=== PATIENT | female | born 1965 | race Caucasian/White ===

== ENCOUNTER 2016-11-11 22:50 | Emergency (ER) ==
[2016-11-11 23:03] VITALS: BP 152/96; TEMP 97.6; BMI 37.8
[2016-11-11] MEDS ORDERED: CARAFATE PO STA (23:04)
[2016-11-11] MEDS ORDERED: GI COCKTAIL PO STA (23:04)
[2016-11-11] MEDS ORDERED: ASPIRIN CHEWABLE PO STA (23:04)
--- NOTE | 2016-11-11 23:13 | ED.PDOC ---
General ED Provider: Dr. EVA CANNON Chief Complaint: Chest Pain Stated Complaint: Patient is brought by police, c/o chest pain, burning type, allthe way upto neck. not short of breath, non exertional pain. ever since she is in snf she is not taking omeprazole Time Seen by Physician: 23:11 Mode of Arrival: Walk-In Information Source: Patient Nursing and Triage Documentation Reviewed and Agree: Yes Cardiovascular Complaint Exam - Chest Pain Complaint/Exam Onset: Gradual Symptoms Are: Still present Timing: Constant Initial Severity: Mild Current Severity: Mild Location: Reports: Upper sternal Pain Radiates: Reports: None Character: Reports: Aching, Tightness, Sharp Aggravating: Reports: None Alleviating: Reports: None Associated Signs and Symptoms: Denies: Diaphoresis, Nausea, Vomiting, Fever, Palpitations, Cough, Hemoptysis, Back pain, Abdominal pain, Dizziness, Short of air, Calf pain, Calf swelling Related History: Reports: Similar episode Related Surgical History: Reports: CABG History of Healthcare-Acquired Pneumonia: Reports: No AMI/ACS Risk Factors: Reports: Myocardial Infarction, Diabetes, Obesity, Hypertension TAD Risk Factors: Reports: None Pulmonary Embolism Risk Factors: Reports: None Prior Care for this Complaint: Yes Subcutaneous Emphysema Present: No Diminshed Breath Sounds: No Reproducible Chest Wall Pain: Yes Bilateral Pulses Present: Yes Unequal Pulses Noted: No If Risk Factors for AMI/ACS Consider: EKG, Cardiac Enzymes, Serial Studies, Oxygen, Aspirin Differential Diagnoses: ACS, Chest Wall Pain, GI Diseasae Review of Systems - Review Of Systems Constitutional: Reports: No symptoms Eyes: Reports: No symptoms Ears, Nose, Mouth, Throat: Reports: No symptoms Respiratory: Reports: No symptoms Cardiac: Reports: Chest pain GI: Reports: Difficulty swallowing : Reports: No symptoms Musculoskeletal: Reports: No symptoms Skin: Reports: No symptoms Neurological: Reports: No symptoms Endocrine: Reports: No symptoms Hematologic/Lymphatic: Reports: No symptoms All Other Systems: Reviewed and Negative Past Medical History - Past Medical History Previously Healthy: Yes Endocrine: Reports: DM 2 Cardiovascular: Reports: CAD, VA, Hypertension Respiratory: Reports: COPD Hematological: Reports: None Gastrointestinal: Reports: None Genitourinary: Reports: None Neuro/Psych: Reports: None Musculoskeletal: Reports: Back Pain Cancer: Reports: Other Last Menstrual Period: PT HAS HAD A HYSTERECTOMY Other Pertinent Past Medical History: CHRONIC NECK AND BACK PAIN, FREQUENT UTI, UTERINE CA - Surgical History General Surgical History: Reports: Hysterectomy, Appendectomy, Cholecystectomy, CABG - Family History Family History: Reports: Unknown - Social History Smoking Status: Former smoker Hx Substance Use: Yes (MARIJUANA) Alcohol Screening: None - Immunizations Tetanus Shot up to Date: No Physical Exam - Physical Exam Appearance: Well-appearing Eyes: ASHOK, EOMI, Conjunctiva clear ENT: Ears normal, Nose normal, Oropharynx normal Respiratory: Airway patent, Breath sounds clear, Breath sounds equal, Respirations nonlabored Cardiovascular: RRR (left chest tender to touch, ), Pulses normal, No rub, No murmur GI/: Soft, Nontender, No masses, Bowel sounds normal, No Organomegaly Musculoskeletal: Normal strength, ROM intact, No edema, No calf tenderness Skin: Warm, Dry, Normal color Neurological: Sensation intact, Motor intact, Reflexes intact, Cranial nerves intact, Alert, Oriented Psychiatric: Affect appropriate, Mood appropriate Re-Evaluation - Re-Evaluation Time of Re-Evaluation: 23:50 Status: Improved Critical Care Note - Critical Care Note Total Time (mins): 0 Course - Course Hematology/Chemistry: 11/11/16 23:15 11/11/16 23:15 Orders, Labs, Meds: Lab Review 11/11/16 23:15 WBC 6.98 RBC 4.84 Hgb 14.4 Hct 40.4 MCV 83.5 MCH 29.8 MCHC 35.6 H RDW Coeff of Heraclio 12.1 Plt Count 140 Immature Gran % (Auto) 0.3 Neut % (Auto) 60.7 Lymph % (Auto) 30.7 [place] % (Auto) 5.6 Eos % (Auto) 2.3 Baso % (Auto) 0.4 Immature Gran # (Auto) 0.0 Neut # 4.2 Lymph # 2.1 [place] # 0.4 Eos # 0.2 Baso # 0.0 D-Dimer 0.88 Sodium 135 L Potassium 4.3 Chloride 104 Carbon Dioxide 19 L Anion Gap 16.3 BUN 12 Creatinine 1.05 Estimated GFR (MDRD) 55.00 BUN/Creatinine Ratio 11.42 Glucose 601 H* Calcium 9.3 Total Bilirubin 0.32 AST 17 ALT 21 Alkaline Phosphatase 87 Total Creatine Kinase 63 Troponin I < 0.0100 Total Protein 7.2 Albumin 3.7 Globulin 3.5 Albumin/Globulin Ratio 1.06 Orders Category Date Time Status EKG-(ED ONLY) Stat CARDIO 11/11/16 23:04 Ordered BLOOD GLUCOSE MONITORING Q1HR CARE 11/11/16 23:57 Ordered CBC W/ AUTO DIFF Stat LAB 11/11/16 23:15 Completed COMPREHENSIVE METABOLIC PANEL Stat LAB 11/11/16 23:15 Completed CREATINE KINASE Stat LAB 11/11/16 23:15 Completed D-DIMER Stat LAB 11/11/16 23:15 Completed TROPONIN I Stat LAB 11/11/16 23:15 Completed Aspirin [Aspirin Chewable] MEDS 11/11/16 23:04 Discontinued 324 mg PO ONCE STA Insulin Regular, Human [Humulin R] MEDS 11/11/16 23:57 Stat 15 unit SUBCUT ONCE STA Mag-Al Plus//Lidocaine [Gi Cocktail] MEDS 11/11/16 23:04 Discontinued 30 ml PO ONCE STA Sucralfate Susp [Carafate] MEDS 11/11/16 23:04 Discontinued 1 gm PO ONCE STA CHEST, 1V AP ONLY Stat RADS 11/11/16 23:04 Taken Medications Discontinued Medications Generic Name Dose Route Start Last Admin Trade Name Freq PRN Reason Stop Dose Admin Al Hydroxide/Mg Hydroxide 30 ml 11/11/16 23:04 11/11/16 23:17 Gi Cocktail PO 11/11/16 23:05 30 ml ONCE STA Administration Aspirin 324 mg 11/11/16 23:04 11/11/16 23:16 Aspirin Chewable PO 11/11/16 23:05 324 mg ONCE STA Administration Sucralfate 1 gm 11/11/16 23:04 11/11/16 23:17 Carafate PO 11/11/16 23:05 1 gm ONCE STA Administration Vital Signs: Temp Pulse Resp BP Pulse Ox 11/11/16 22:52 97.6 F 106 H 24 152/96 H 96 SHIRLEY Risk Score SHIRLEY Risk Score: Risk Score Odds of by 30D 0 0.1 (0.1-0.2) 1 0.3 (0.2-0.3) 2 0.4 (0.3-0.5) 3 0.7 (0.6-0.9) 4 1.2 (1.0-1.5) 5 2.2 (1.9-2.6) 6 3.0 (2.5-3.6) 7 4.8 (3.8-6.1) Departure - Departure Time of Disposition: 00:02 Disposition: HOME SELF-CARE Discharge Problem: GERD (gastroesophageal reflux disease) Qualifiers: Esophagitis presence: without esophagitis Qualifier Code: (K21.9) Gastro- esophageal reflux disease without esophagitis Instructions: Diet for Stomach Ulcers and Gastritis (ED) Condition: Stable Pt referred to PMD for follow-up: Yes Additional Instructions: she is been off of DM medications, will start her on Metformin 1000 po bid Januvia 50 po daily accu checks tid x 10 days f/u in C IN 10 DAYS no spicy food no fried food atypical chest pain, more of burning. Prescriptions: Metformin HCl 1,000 mg PO BID #60 tablet Pantoprazole Sodium [Protonix] 40 mg PO BIDAC #60 tablet. Sitagliptin Phosphate [Januvia] 50 mg PO DAILY #30 tablet Sucralfate Susp [Carafate] 1 gm PO ACHS #1 bottle Allergies/Adverse Reactions: Allergies No Known Allergies Allergy (Uncoded 11/11/16 23:04) Home Medications: Ambulatory Orders Aspirin [Aspirin Chewable] 81 mg PO DAILYWM 11/11/16 Ciprofloxacin HCl [Cipro] 500 mg PO Q12HR 11/11/16 Clonazepam [Klonopin] 0.5 mg PO TID 11/11/16 Clopidogrel Bisulfate [Plavix] 75 mg PO DAILY 11/11/16 Doxepin HCl 25 mg PO BEDTIME 11/11/16 Gabapentin [Neurontin] 600 mg PO TID 11/11/16 Lisinopril 10 mg PO DAILY 11/11/16 Metformin HCl 1,000 mg PO BID #60 tablet 11/11/16 Nitroglycerin [Nitrostat] 0.4 mg SL DIRECTED PRN 11/11/16 Pantoprazole Sodium [Protonix] 40 mg PO BIDAC #60 tablet. 11/11/16 Sitagliptin Phosphate [Januvia] 50 mg PO DAILY #30 tablet 11/11/16 Sucralfate Susp [Carafate] 1 gm PO ACHS #1 bottle 11/11/16 Tramadol HCl 50 mg PO BID 11/11/16 Disposition Discussed With: Patient
[2016-11-11 23:16] LABS: BASOPHILS % (AUTO) 0.4 % (0.0-3.0); EOSINOPHILS # (AUTO) 0.2 K/ul (0.0-0.7); EOSINOPHILS % (AUTO) 2.3 % (0.0-7.0); HEMATOCRIT 40.4 % (37.0-47.0); HEMOGLOBIN 14.4 g/dl (12.0-16.0); IMMATURE GRANULOCYTE % (AUTO) 0.3 % (0.0-5.0); LYMPHOCYTES # (AUTO) 2.1 K/uL (0.60-3.4); LYMPHOCYTES % (AUTO) 30.7 (10.0-50.0); MEAN CORPUSCULAR HEMOGLOBIN 29.8 pg (27.0-31.0); MEAN CORPUSCULAR HGB CONC 35.6 (31.8-35.4); MEAN CORPUSCULAR VOLUME 83.5 fl (81.0-99.0); MONOCYTES # (AUTO) 0.4 K/uL (0.4-2.0); MONOCYTES % (AUTO) 5.6 (0-10); NEUTROPHILS # (AUTO) 4.2 K/ul (2.0-6.9); NEUTROPHILS % (AUTO) 60.7; PLATELET COUNT 140 10^3/uL (140-440); RED BLOOD COUNT 4.84 10^6/ul (4.20-5.40); WHITE BLOOD COUNT 6.98 K/ul (4.6-10.2)
[2016-11-11 23:41] LABS: ALANINE AMINOTRANSFERASE 21 U/L (12-78); ALBUMIN 3.7 g/dL (3.4-5.0); ALBUMIN/GLOBULIN RATIO 1.06; ALKALINE PHOSPHATASE 87 U/L (42-98); ANION GAP 16.3; ASPARTATE AMINO TRANSFERASE 17 U/L (15-37); BILIRUBIN,TOTAL 0.32 mg/dL (0.00-1.20); BLOOD UREA NITROGEN 12 mg/dL (7-18); BUN/CREATININE RATIO 11.42; CALCIUM 9.3 mg/dL (8.2-10.2); CARBON DIOXIDE 19 mmol/L (21-32); CHLORIDE 104 mmol/L (98-107); CREATINE KINASE 63 U/L; CREATININE 1.05 mg/dL (0.60-1.30); POTASSIUM 4.3 mmol/L (3.5-5.10); SODIUM 135 mmol/L (136-145); TOTAL PROTEIN 7.2 g/dL (6.4-8.2)
[2016-11-11 23:53] LABS: GLUCOSE 601 mg/dL (70-110)
[2016-11-11] MEDS ORDERED: HUMULIN R SUBCUT STA (23:57)
--- NOTE | 2016-11-12 05:01 | DI ---
EXAM: Chest, one-view HISTORY: Chest Pain FINDINGS: Cardiac and mediastinal contours are normal. Pulmonary vasculature is normal. Lungs are clear. Prior coronary artery bypass markers. Right convexity thoracic scoliosis. No acute chest w all abnormality. IMPRESSION: No acute cardiopulmonary disease.
== END 2016-11-12 01:18 | disposition home or self-care (01) ==
LOC: ED 22:50
DX: K21.9 Gastro-esophageal reflux disease without esophagitis (principal); I25.2 Old myocardial infarction; E11.9 Type 2 diabetes mellitus without complications; E66.9 Obesity, unspecified; I10 Essential (primary) hypertension; I25.810 Atherosclerosis of coronary artery bypass graft(s) without angina pectoris; J44.9 Chronic obstructive pulmonary disease, unspecified; Z79.899 Other long term (current) drug therapy
CPT/HCPCS: 36415; 80053; 82550; 84484; 85025; 85379; 93005; 93010; 96372; 99283

== ENCOUNTER 2016-11-26 10:58 | Inpatient (IN) | payer OTHER ==
[2016-11-26 11:02] VITALS: BMI 34.0
--- NOTE | 2016-11-26 11:07 | ED.PDOC ---
General ED Provider: Dr. SHANNON COPPOLA JR Chief Complaint: Tooth Problem Stated Complaint: patient states started having pain and swelling to right side of face and upper gums. now swelling has spread to bilateral eyes.[End]97.7 98 20 99% 145/100 9/10 amoxil this AM Time Seen by Physician: 11:10 Mode of Arrival: Walk-In Information Source: Patient Exam Limitations: No limitations Nursing and Triage Documentation Reviewed and Agree: No Review of Systems - Review Of Systems Constitutional: Reports: Malaise, Weakness Eyes: Reports: Inflammation Ears, Nose, Mouth, Throat: Reports: Mouth pain (right upper jaw"I had an abscess yesterday") Respiratory: Reports: No symptoms Cardiac: Reports: No symptoms GI: Reports: No symptoms : Reports: No symptoms Musculoskeletal: Reports: No symptoms Skin: Reports: Other (facial edema) Neurological: Reports: No symptoms Endocrine: Reports: No symptoms Hematologic/Lymphatic: Reports: No symptoms All Other Systems: Other Past Medical History - Past Medical History Previously Healthy: Yes Endocrine: Reports: DM 1, DM 2, Hyperthyroid (old record), Dyslipidemia (old record) Cardiovascular: Reports: CAD, ID, Hypertension, Angina (old record) Respiratory: Reports: COPD Hematological: Reports: None Gastrointestinal: Reports: None, GERD (old record; protonix) Genitourinary: Reports: None, UTI ( FREQUENT UTI) Neuro/Psych: Reports: None, Anxiety (old record), Depression (old record) Musculoskeletal: Reports: Back Pain (CHRONIC NECK AND BACK PAIN) Cancer: Reports: Other (UTERINE CA) Last Menstrual Period: n/a Other Pertinent Past Medical History: - Surgical History General Surgical History: Reports: Hysterectomy, Appendectomy, Cholecystectomy, CABG, Other - Family History Family History: Reports: Unknown - Social History Smoking Status: Former smoker Hx Substance Use: Yes (MARIJUANA) Alcohol Screening: None Physical Exam - Physical Exam Appearance: Ill-appearing, Obese Ill-appearing: Moderate Pain Distress: Moderate Eyes: ASHOK, EOMI, Conjunctiva clear ENT: Ears normal (tm s retracted dull no inflammation), Nose normal, Oropharynx normal Neck: Supple Respiratory: Airway patent, Breath sounds clear, Breath sounds equal, Respirations nonlabored Cardiovascular: RRR, Pulses normal, No rub, No murmur GI/: Soft, Nontender, No masses, Bowel sounds normal, No Organomegaly Musculoskeletal: Normal strength, ROM intact, No edema, No calf tenderness Skin: Warm, Dry, Normal color Neurological: Sensation intact, Motor intact, Reflexes intact, Cranial nerves intact, Alert, Oriented Psychiatric: Affect appropriate, Mood appropriate Critical Care Note - Critical Care Note Total Time (mins): 5 Course - Course Hematology/Chemistry: 11/26/16 11:10 11/26/16 11:10 Vital Signs: Temp Pulse Resp BP Pulse Ox 11/26/16 10:59 97.7 F 98 H 20 145/100 H 99 Departure - Departure Time of Disposition: 12:28 Disposition: ADMITTED INPATIENT Discharge Problem: Diffuse cellulitis of face Condition: Stable Pt referred to PMD for follow-up: Yes Allergies/Adverse Reactions: Allergies No Known Allergies Allergy (Uncoded 11/26/16 11:02) Home Medications: Ambulatory Orders Aspirin [Aspirin Chewable] 81 mg PO DAILYWM 11/11/16 Clonazepam [Klonopin] 0.5 mg PO TID 11/11/16 Clopidogrel Bisulfate [Plavix] 75 mg PO DAILY 11/11/16 Doxepin HCl 25 mg PO BEDTIME 11/11/16 Gabapentin [Neurontin] 600 mg PO TID 11/11/16 Lisinopril 10 mg PO DAILY 11/11/16 Metformin HCl 1,000 mg PO BID #60 tablet 11/11/16 Nitroglycerin [Nitrostat] 0.4 mg SL DIRECTED PRN 11/11/16 Pantoprazole Sodium [Protonix] 40 mg PO BIDAC #60 tablet. 11/11/16 Sucralfate Susp [Carafate] 1 gm PO ACHS #1 bottle 11/11/16 Tramadol HCl 50 mg PO BID 11/11/16 Insulin Glargine,Hum.rec.anlog [Lantus] 40 unit SUBCUT BID 11/26/16
[2016-11-26 11:25] LABS: BASOPHILS % (AUTO) 0.4 % (0.0-3.0); EOSINOPHILS # (AUTO) 0.3 K/ul (0.0-0.7); EOSINOPHILS % (AUTO) 3.3 % (0.0-7.0); HEMATOCRIT 38.6 % (37.0-47.0); HEMOGLOBIN 13.2 g/dl (12.0-16.0); IMMATURE GRANULOCYTE % (AUTO) 0.4 % (0.0-5.0); LYMPHOCYTES # (AUTO) 2.6 K/uL (0.60-3.4); MEAN CORPUSCULAR HGB CONC 34.2 (31.8-35.4); MEAN CORPUSCULAR VOLUME 84.8 fl (81.0-99.0); MONOCYTES # (AUTO) 0.5 K/uL (0.4-2.0); MONOCYTES % (AUTO) 6.6 (0-10); NEUTROPHILS # (AUTO) 4.7 K/ul (2.0-6.9); NEUTROPHILS % (AUTO) 57.3; PLATELET COUNT 163 10^3/uL (140-440); RED BLOOD COUNT 4.55 10^6/ul (4.20-5.40); WHITE BLOOD COUNT 8.15 K/ul (4.6-10.2)
[2016-11-26 11:42] LABS: FLU INTERNAL QC INTERNAL QC VALID; RAPID FLU A NEGATIVE (NEGATIVE); RAPID FLU B NEGATIVE (NEGATIVE)
[2016-11-26 11:48] LABS: ALBUMIN 3.4 g/dL (3.4-5.0); ALBUMIN/GLOBULIN RATIO 1.17; ANION GAP 15.7; BILIRUBIN,TOTAL 0.7 mg/dL (0.00-1.20); CREATININE 0.75 mg/dL (0.60-1.30); POTASSIUM 3.7 mmol/L (3.5-5.10); TOTAL PROTEIN 6.3 g/dL (6.4-8.2)
--- NOTE | 2016-11-26 12:13 | CT ---
EXAM: CT facial bones without contrast HISTORY: Right upper jaw pain with periorbital swelling COMPARISON: None TECHNIQUE: CT facial bones performed without intravenous contrast. Coronal and sagittal reformatte d images obtained. FINDINGS: Mastoid air cells clear. Temporal mandibular joints normally aligned. Mandible intact. Zygomatic maxillary complexes intact. Orbital conde intact. No facial bone fracture. Mild leftwa rd deviation nasal septum. Cervical spinal fusion hardware is incompletely imaged. Degenerative blandon ges in the spine. Minimal mucosal thickening maxillary sinuses. No air-fluid levels paranasal sin uses. Globes and retrobulbar structures appear normal. There is bilateral facial subcutaneous stra nding. Stranding extends to the anterior aspect of the bilateral parotid glands. There is mild sof t tissue swelling surrounding the right periorbital region. No focal drainable collection. Globes a nd retrobulbar structures unremarkable. IMPRESSION: 1. Bilateral facial cellulitis without focal drainable collection. The inflammation extends to bi lateral parotid glands and a component of sialoadenitis not excluded; however, this is favored not t o be the primary source of inflammation as findings are bilateral and fairly symmetric. Right perior bital region also involved. No focal drainable collection. Findings can be correlated clinically for any component of trauma/contusion. 2. Minimal sinusitis with chronic features.
[2016-11-26] MEDS ORDERED: SODIUM CHLORIDE 1,000 ML IV STA (12:29)
[2016-11-26] MEDS ORDERED: VANCOMYCIN 1 GM in SODIUM CHLORIDE 250 ML IV STA (12:29)
[2016-11-26] MEDS ORDERED: ZOSYN 3.375 GM 3.375 GM in SODIUM CHLORIDE 100 ML IV STA (12:30)
[2016-11-26] MEDS ORDERED: TORADOL IVP STA (12:51)
[2016-11-26] MEDS: SODIUM CHLORIDE 1,000 ML IV SCH (13:05)
[2016-11-26] MEDS ORDERED: ZOSYN 3.375 GM 3.375 GM in SODIUM CHLORIDE 100 ML IV SCH (14:00)
[2016-11-26] MEDS ORDERED: NITROSTAT SL PRN (16:40)
[2016-11-26] MEDS ORDERED: NON-FORMULARY MEDICATION (Metformin Hcl [Metformin Hcl] 1,000 MG) PO SCH ×22 (17:30)
[2016-11-26] MEDS: CARAFATE PO SCH ×2 (17:50→20:40)
[2016-11-26] MEDS: GLUCOPHAGE PO SCH (17:50)
[2016-11-26] MEDS: PROTONIX PO SCH (17:50)
[2016-11-26] MEDS: ZOSYN 3.375 GM 3.375 GM in SODIUM CHLORIDE 100 ML IV SCH (19:05)
[2016-11-26] MEDS: SINEQUAN PO SCH (20:41)
[2016-11-26] MEDS: NEURONTIN PO SCH (20:41)
[2016-11-26] MEDS: VANCOMYCIN 750 MG in SODIUM CHLORIDE 250 ML IV SCH (20:42)
[2016-11-26] MEDS: ULTRAM PO SCH (21:00)
[2016-11-26] MEDS: KLONOPIN PO SCH (21:00)
[2016-11-26] MEDS ORDERED: VANCOMYCIN 1.5 GM in SODIUM CHLORIDE 500 ML IV SCH (21:00)
[2016-11-26] MEDS: LANTUS SUBCUT SCH (21:00)
[2016-11-26] MEDS ORDERED: NON-FORMULARY MEDICATION (Gabapentin [Neurontin] 600 MG) PO SCH ×22 (21:00)
[2016-11-27] MEDS: ZOSYN 3.375 GM 3.375 GM in SODIUM CHLORIDE 100 ML IV SCH ×5 (00:15→23:39)
[2016-11-27 05:16] LABS: BASOPHILS % (AUTO) 0.3 % (0.0-3.0); EOSINOPHILS # (AUTO) 0.3 K/ul (0.0-0.7); EOSINOPHILS % (AUTO) 5.3 % (0.0-7.0); HEMOGLOBIN 12.6 g/dl (12.0-16.0); IMMATURE GRANULOCYTE % (AUTO) 0.3 % (0.0-5.0); LYMPHOCYTES # (AUTO) 2.6 K/uL (0.60-3.4); LYMPHOCYTES % (AUTO) 40.5 (10.0-50.0); MEAN CORPUSCULAR HGB CONC 33.2 (31.8-35.4); MEAN CORPUSCULAR VOLUME 87.4 fl (81.0-99.0); MONOCYTES # (AUTO) 0.4 K/uL (0.4-2.0); MONOCYTES % (AUTO) 6.1 (0-10); NEUTROPHILS # (AUTO) 3.1 K/ul (2.0-6.9); NEUTROPHILS % (AUTO) 47.5; PLATELET COUNT 169 10^3/uL (140-440); RED BLOOD COUNT 4.35 10^6/ul (4.20-5.40); WHITE BLOOD COUNT 6.42 K/ul (4.6-10.2)
[2016-11-27] MEDS: PROTONIX PO SCH ×3 (05:16→16:55)
[2016-11-27] MEDS: CARAFATE PO SCH ×5 (05:17→20:47)
[2016-11-27 05:42] LABS: ALBUMIN 2.9 g/dL (3.4-5.0); ALBUMIN/GLOBULIN RATIO 0.97; ANION GAP 12.2; BILIRUBIN,TOTAL 0.55 mg/dL (0.00-1.20); BUN/CREATININE RATIO 15.18; CALCIUM 8.6 mg/dL (8.2-10.2); CREATININE 0.79 mg/dL (0.60-1.30); POTASSIUM 4.2 mmol/L (3.5-5.10); TOTAL PROTEIN 5.9 g/dL (6.4-8.2)
[2016-11-27] MEDS: SODIUM CHLORIDE 1,000 ML IV SCH (08:19)
[2016-11-27] MEDS: ULTRAM PO SCH ×2 (08:33→20:48)
[2016-11-27] MEDS: GLUCOPHAGE PO SCH ×2 (08:33→16:55)
[2016-11-27] MEDS: ASPIRIN CHEWABLE PO SCH (08:33)
[2016-11-27] MEDS: NEURONTIN PO SCH ×3 (08:33→20:48)
[2016-11-27] MEDS: KLONOPIN PO SCH ×3 (08:33→20:48)
[2016-11-27] MEDS: PLAVIX PO SCH (08:34)
[2016-11-27] MEDS: LANTUS SUBCUT SCH ×2 (08:34→20:49)
[2016-11-27] MEDS: ZESTRIL PO SCH (08:34)
[2016-11-27] MEDS: VANCOMYCIN 750 MG in SODIUM CHLORIDE 250 ML IV SCH ×2 (08:38→20:47)
[2016-11-27] MEDS: CEPACOL SORE THROAT LOZENGE MUCOUSMEMB SCH ×8 (09:18→23:16)
[2016-11-27] MEDS: TYLENOL PO PRN ×2 (11:21→18:10)
--- NOTE | 2016-11-27 13:28 | PCM.PROG ---
Attending Provider: ATTENDING PROVIDER: Dr. EVA CANNON DATE OF SERVICE: 11/27/16 SUBJECTIVE: This 51 year old WHITE/ F was hospitalized 11/26/16. The patient is admitted with facial cellulitis, bilateral parotiditis. The patient complains of pain in the face and both jaws. Swelling is still present. She also complains of sore throat. REVIEW OF SYSTEMS: CONSTITUTIONAL: No fever, no chills. ENDOCRINE: No weight loss or weight gain. HEENT: No sinus drainage. Sore throat. Parotid tenderness bilaterally. CVS: Chest nonunion sternal wall. No angina symptoms. No CHF symptoms. No palpitations. No atypical chest pain for CAD. No shortness of breath. RESPIRATORY: No cough, no hemoptysis. GI: No melena. No abdominal pain. No nausea, no vomiting. : No hematuria. No polyuria. SKIN: No rash. No wounds. MUSCULOSKELETAL: No pain. BAG SHAKER: No blackout, no dizziness. No headache. No double vision. PSYCHIATRIC: Not anxious; no depression. No suicidal thoughts. No homicidal thoughts. PHYSICAL EXAMINATION: GENERAL: Lying in bed in no distress. VITAL SIGNS: Temperature 98.1 F, Pulse 86, Respiratory Rate 20, BP 107/67, Pulse Ox 92% HEENT: Mucosa is dry, pallor positive.puffy. The face is puffy - has swelling below the orbits, warm to touch, tender to touch with bilateral parotid swelling. NECK: No JVP, no carotid bruit. No lymphadenopathy. CARDIAC: S1, S2, no S3. Systolic murmur. LUNGS: Decreased entry. Clear to auscultation. ABDOMEN: Soft, non-tender. Bowel sounds active. No rigidity, guarding or CVA tenderness. EXTREMITIES: No clubbing, cyanosis or edema. NEUROLOGIC: Awake, alert and oriented x3. LYMPHATIC: No palpable lymph nodes SKIN: Not dry. Intact. MUSCULOSKELETAL: No joint swelling. LAB REVIEW: 11/27/16 05:10 11/27/16 05:20 11/27/16 05:20: Sodium 145, Potassium 4.2, Chloride 109 H, Carbon Dioxide 28, Anion Gap 12.2, BUN 12, Creatinine 0.79, Estimated GFR (MDRD) 76.00, BUN/ Creatinine Ratio 15.18, Glucose 114 H D, Calcium 8.6, Total Bilirubin 0.55, AST 15, ALT 16, Alkaline Phosphatase 51, Total Protein 5.9 L, Albumin 2.9 L, Globulin 3.0, Albumin/Globulin Ratio 0.97 11/27/16 05:10: WBC 6.42, RBC 4.35, Hgb 12.6, Hct 38.0, MCV 87.4, MCH 29.0, MCHC 33.2, RDW Coeff of Heraclio 12.4, Plt Count 169, Immature Gran % (Auto) 0.3, Neut % (Auto) 47.5, Lymph % (Auto) 40.5, [place] % (Auto) 6.1, Eos % (Auto) 5.3, Baso % (Auto) 0.3, Immature Gran # (Auto) 0.0, Neut # 3.1, Lymph # 2.6, [place] # 0.4, Eos # 0.3, Baso # 0.0 ASSESSMENT: 1. Facial cellulitis, bilateral parotiditis 2. History of CAD 3. 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 History of hypertension 5. History of angina 6. History of substamce use 7. History of depression 8. History of COPD 9. History of uterine cancer 10. History of back pain 11. History of GERD 12. S/P appendectomy 13. S/P hysterectomy 14. S/P cholecystectomy PLAN: 1. Continue Rocephin and Vancomycin 2. Questionable Parotiditis. Advised warm cloth to massage parotid area and lozenges to help 3. Have the patient sit upright 4. Dr. Yu consult 5. Will check mumps serology 6. Risk of cavernous sinus thrombosis Plan and coordination of the patient's care discussed in the presence of [employer] and nurse. CONDITION: Stable SCRIBED BY: MOE NICOLE, Product Development Manager scribed while in presence of service performed by Dr. EVA CANNON on 11/27/16 ([id number])
--- NOTE | 2016-11-27 13:45 | HP ---
DATE OF SERVICE: 11/26/16 REASON FOR HOSPITALIZATION: Facial swelling. HISTORY OF PRESENT ILLNESS: The patient is a 51 year old female with a history of diabetes, hypertension and coronary artery disease. The patient is currently in the long-term for some problem. Yesterday morning she started having the face right upper jaw pain and swelling. Today morning her whole face is swollen, warm to touch and tender to touch so the police department was worried and brought the patient to the emergency room, seen by Dr. Mora. WBC was normal, chemistries sugars were 205, CT of the maxillofacial showed bilateral face defuse cellulitis without drainage collection. Inflammation extends to bilateral parotid glands and the component of the sialoadenitis not excluded. Even the bilateral periorbital region is also involved but there was no abscess. At that time in review of diabetes and the defused facial cellulitis the patient is admitted to the hospital for IV antibiotics. Neurologically patient is stable at this time. REVIEW OF SYSTEMS: CONSTITUTIONAL: No night sweats. No fatigue, malaise, lethargy. No fever or chills. HEENT: Eyes: No visual changes. No eye pain. No eye discharge. ENT: No runny nose. No epistaxis. No sinus pain. No sore throat. No odynophagia. No ear pain. No congestion. Facial swelling, pain, some aches and pain. RESPIRATORY: No cough, no congestion. No hemoptysis. CARDIOVASCULAR: No angina symptoms. No CHF symptoms. No atypical chest pain for CAD. No palpitations. No shortness of breath. GASTROINTESTINAL: No abdominal pain. No nausea or vomiting. No diarrhea or constipation. No hematemesis. No hematochezia. GENITOURINARY: No urgency. No frequency. No dysuria. No hematuria. No obstructive symptoms. No discharge. No pain. No significant abnormal bleeding. MUSCULOSKELETAL: No musculoskeletal pain. No joint swelling. No arthritis. NEUROLOGICAL: No headache. No neck pain. No syncope. No seizures. No dizziness. PSYCHIATRIC: Anxious. Depression. No suicidal thoughts. No homicidal thoughts. SKIN: No rash. No lesions. No wounds. ENDOCRINE: No unexplained weight loss. No weight gain. HEMATOLOGIC/LYMPHATIC: No anemia. No purpura. No petechiae. No prolonged or excessive bleeding. No palpable lymph nodes. PERSONAL/FAMILY/SOCIAL HISTORY: The patient does smoke and drink occasionally. Heavy user of the marijuana and the Methamphetamine in the past. Family history is significant for the Diabetes , Hypertension, Thyroid problems. PAST MEDICAL/SURGICAL PROBLEMS: Diabetes Hypertension Dyslipidemia History of TIA CVA COPD Osteoarthritis DJD Spine Anxiety Depression Bypass surgery, 2013 complicated with infection so part of the sternum was removed. Stent Cholecystectomy Hysterectomy MEDICATIONS: Aspirin Klonopin Plavix Doxepin Neurontin Lisinopril Metformin Nitrostat Protonix Carafate Tramadol Insulin ALLERGIES: No known allergies. PHYSICAL EXAMINATION: VITAL SIGNS: blood pressure 145/100, respiratory rate 20, heart rate 98, temperature 97.7 and saturation 99%. HEENT: Head normocephalic, atraumatic. Eyes: Extraocular muscles are intact. Pupils are equal, round and reactive to light and accommodation. Ears: No lesions. Nose appeared normal. Throat: No exudate or erythema. Swollen face with redness and warm to touch. Oral examination: The patient doesn't have any teeth. No source of infection. Bilateral parotids are swollen and tender. NECK: Supple. No JVD, no carotid bruit. No lymphadenopathy or thyromegaly. LUNGS: Decreased and clear to auscultation. Percussion note normal. Chest symmetrical. HEART: S1, S2, no S3. No murmurs. No cyanosis or clubbing. No ascites. Pulses: Dorsalis pedis and posterior tibial pulses +1 to +2 both sides. ABDOMEN: Soft. Nontender. Bowel sounds active. No CVA tenderness. No mass felt. EXTREMITIES: No edema. Full range of motion of all extremities, equal. NEUROLOGIC: No focal deficit. Cranial nerves II through XII are grossly intact. No headache, no double vision or headache. SKIN: Not dry. Intact. Turgor - normal. LYMPHATIC: No palpable lymph nodes/no lymphedema. MUSCULOSKELETAL: Normal joints with no swelling. Muscle tone is normal. LABS: WBC 8.15, hgb 13.2, hct 38.6, plt count 163, sodium 141, potassium 3.7, chloride 104, bicarb 25, BUN 9, creatinine 0.75 and glucose 205. ASSESSMENT: 1. Bilateral facial cellulitis 2. Bilateral Sialadenitis, parotitis 3. History of diabetes 4. Hypertension 5. Dyslipidemia 6. Coronary artery disease 7. CABG 8. Depression 9. Anxiety PLAN: 1. Admit patient to the regular floor 2. CBC and CMP today and daily 3. Cardiac enzymes and Troponin 4. Continue the home medication 5. Continue the Zosyn, Piperacillin/Tazobactam and Vancomycin 6. IV fluids 7. Accu-checks with the coverage Will follow the patient in daily rounds. TIME SPENT: More than 65 minutes. MTDD
[2016-11-27 15:45] LABS: COCAIN SCREEN,URINE NEGATIVE (NEGATIVE)
[2016-11-27] MEDS: SINEQUAN PO SCH (20:48)
[2016-11-27] MEDS ORDERED: CEPACOL SORE THROAT LOZENGE MUCOUSMEMB PRN (23:17)
[2016-11-28] MEDS: ZOSYN 3.375 GM 3.375 GM in SODIUM CHLORIDE 100 ML IV SCH ×4 (05:05→23:11)
[2016-11-28] MEDS: SODIUM CHLORIDE 1,000 ML IV SCH (05:05)
[2016-11-28] MEDS: CARAFATE PO SCH ×4 (05:50→20:49)
[2016-11-28] MEDS: PROTONIX PO SCH ×2 (05:50→16:10)
[2016-11-28 07:20] LABS: BASOPHILS % (AUTO) 0.2 % (0.0-3.0); EOSINOPHILS # (AUTO) 0.3 K/ul (0.0-0.7); EOSINOPHILS % (AUTO) 5.3 % (0.0-7.0); HEMATOCRIT 35.7 % (37.0-47.0); IMMATURE GRANULOCYTE % (AUTO) 0.5 % (0.0-5.0); LYMPHOCYTES # (AUTO) 2.2 K/uL (0.60-3.4); LYMPHOCYTES % (AUTO) 39.9 (10.0-50.0); MEAN CORPUSCULAR HEMOGLOBIN 29.1 pg (27.0-31.0); MEAN CORPUSCULAR HGB CONC 33.6 (31.8-35.4); MEAN CORPUSCULAR VOLUME 86.4 fl (81.0-99.0); MONOCYTES # (AUTO) 0.3 K/uL (0.4-2.0); MONOCYTES % (AUTO) 6.2 (0-10); NEUTROPHILS # (AUTO) 2.7 K/ul (2.0-6.9); NEUTROPHILS % (AUTO) 47.9; PLATELET COUNT 151 10^3/uL (140-440); RED BLOOD COUNT 4.13 10^6/ul (4.20-5.40); WHITE BLOOD COUNT 5.52 K/ul (4.6-10.2)
[2016-11-28 07:49] LABS: ALBUMIN 2.9 g/dL (3.4-5.0); ALBUMIN/GLOBULIN RATIO 1.04; ANION GAP 12.8; BILIRUBIN,TOTAL 0.42 mg/dL (0.00-1.20); BUN/CREATININE RATIO 16.66; CALCIUM 8.3 mg/dL (8.2-10.2); CREATININE 0.72 mg/dL (0.60-1.30); POTASSIUM 3.8 mmol/L (3.5-5.10); TOTAL PROTEIN 5.7 g/dL (6.4-8.2)
[2016-11-28] MEDS: ULTRAM PO SCH ×2 (09:27→20:56)
[2016-11-28] MEDS: ZESTRIL PO SCH (09:27)
[2016-11-28] MEDS: ASPIRIN CHEWABLE PO SCH (09:27)
[2016-11-28] MEDS: KLONOPIN PO SCH ×3 (09:27→20:56)
[2016-11-28] MEDS: LANTUS SUBCUT SCH ×2 (09:28→20:50)
[2016-11-28] MEDS: GLUCOPHAGE PO SCH ×2 (09:28→18:19)
[2016-11-28] MEDS: NEURONTIN PO SCH ×3 (09:28→20:56)
[2016-11-28] MEDS: VANCOMYCIN 750 MG in SODIUM CHLORIDE 250 ML IV SCH ×2 (10:19→20:49)
[2016-11-28] MEDS: PLAVIX PO SCH (10:19)
--- NOTE | 2016-11-28 10:57 | CONS ---
DATE OF CONSULTATION: 11/28/16 REASON FOR CONSULTATION/HISTORY: This is a 51-year-old lady with history of having pain in her neck up into her throat. She apparently injected some methamphetamine and is concerned about cellulitis. PHYSICAL EXAMINATION: EARS: Clear. NOSE: Dry mucous membranes. No pus or polyps noted. MOUTH: Oropharynx edentulous, no lesions noted. NECK: Reveals tenderness in the carotid arteries bilaterally. IMPRESSION: 1. BILATERAL CAROTIDYNIA, WHICH IS PROBABLY A VIRAL SYNDROME WITH NO SIGNIFICANT PATHOLOGY. RECOMMENDATION: 1. Recommend a mild antiinflammatory agent such as Tylenol or Aspirin. 2. She can be discharged to return on an as needed basis. [place]
[2016-11-28] MEDS: TYLENOL PO PRN (11:14)
--- NOTE | 2016-11-28 13:23 | PN ---
DATE OF SERVICE: 11/28/16 SUBJECTIVE: The patient was admitted with the facial cellulitis and bilateral parotitis. The patient is feeling a little better but swelling and redness is still somewhat present in the face. No swallow difficulty. She has to be seen by Dr. Yu today. REVIEW OF SYSTEMS: CONSTITUTIONAL: No fever, no chills. HEENT: Normal. ENDOCRINE: No weight gain, no weight loss. CVS: No angina symptoms. No CHF symptoms. No palpitations. No atypical chest pain for CAD. No shortness of breath. No PND, no orthopnea. RESPIRATORY: No cough, no hemoptysis. GI: No nausea, no vomiting. No abdominal pain. : No hematuria. No polyuria. MUSCULOSKELETAL:. No joint swelling. PSYCHIATRIC: Not anxious. No depression. No suicidal thoughts. No homicidal thoughts. SKIN: Intact. No rash. PHYSICAL EXAMINATION: V/S:Blood pressure 130/88, respiratory rate 20, heart rate 76 and temperature 97.5. HEENT: Normocephalic, atraumatic. Ears, eyes, nose and throat normal. Facial swelling, redness to touch, warm to touch and bilateral parotids swellings. NECK: Supple. No JVD, no carotid bruit. No lymphadenopathy. LUNGS: Clear to auscultation. No rales or rhonchi. HEART: S1, S2 normal. No S3. No murmur, gallop or regurgitation. ABDOMEN: Soft, nontender. Bowel sounds active. No rigidity. No rebound or guarding. No CVA tenderness. EXTREMITIES: No clubbing, cyanosis or pedal edema. MUSCULOSKELETAL: No joint swelling. NEUROLOGIC: Awake, alert, oriented times three. No focal deficit. LYMPHATIC: No lymph nodes palpable. SKIN: Intact. LABS: WBC 5.52, hgb 12.0, hct 35.7, plt count 151, sodium 144, potassium 3.8, chloride 111, bicarb 24, BUN 12, creatinine 0.72 and glucose 119. ASSESSMENT: 1. Bilateral facial cellulitis 2. Acute parotitis, rule out mumps 3. History of diabetes 4. Hypertension 5. Dyslipidemia 6. 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 PLAN: 1. Continue antibiotics 2. Piperacillin/Tazobactam 3. Vancomycin 4. Accu-checks with the coverage 5. Follow up with Dr. Yu. TIME SPENT: More than 30 minutes MTDD
--- NOTE | 2016-11-28 16:17 | CT ---
EXAM: CT head without contrast HISTORY: Decreased level of consciousness COMPARISON: CT head 04/22/2016, maxillofacial CT 11/26/2016 and MRI brain 07/08/2013 TECHNIQUE: Serial axial images of the brain were obtained from the skull base to the vertex without IV contrast. FINDINGS: The ventricles, cisterns and sulci demonstrate mild generalized volume loss. The ortega-wh ite matter junction is maintained. There is mild scattered low attenuation in the periventricular w kandice matter.No midline shift or mass is identified. There is no abnormal intra or extra-axial fluid collection. The paranasal sinuses and mastoid air cells are clear. The osseous calvarium is intac t. IMPRESSION: No acute intracranial abnormality or hemorrhage. If there is concern for stroke, MRI may be obtained . There is mild generalized volume loss and scattered microangiopathy.
[2016-11-28] MEDS: SINEQUAN PO SCH (20:56)
[2016-11-29] MEDS: ZOSYN 3.375 GM 3.375 GM in SODIUM CHLORIDE 100 ML IV SCH (05:43)
[2016-11-29] MEDS: CARAFATE PO SCH (05:43)
[2016-11-29] MEDS: PROTONIX PO SCH (05:43)
[2016-11-29 06:06] LABS: BASOPHILS % (AUTO) 0.5 % (0.0-3.0); EOSINOPHILS # (AUTO) 0.3 K/ul (0.0-0.7); EOSINOPHILS % (AUTO) 4.4 % (0.0-7.0); HEMATOCRIT 39.8 % (37.0-47.0); HEMOGLOBIN 13.1 g/dl (12.0-16.0); IMMATURE GRANULOCYTE % (AUTO) 0.3 % (0.0-5.0); LYMPHOCYTES # (AUTO) 2.5 K/uL (0.60-3.4); LYMPHOCYTES % (AUTO) 38.6 (10.0-50.0); MEAN CORPUSCULAR HEMOGLOBIN 28.9 pg (27.0-31.0); MEAN CORPUSCULAR HGB CONC 32.9 (31.8-35.4); MEAN CORPUSCULAR VOLUME 87.7 fl (81.0-99.0); MONOCYTES # (AUTO) 0.4 K/uL (0.4-2.0); MONOCYTES % (AUTO) 5.7 (0-10); NEUTROPHILS # (AUTO) 3.2 K/ul (2.0-6.9); NEUTROPHILS % (AUTO) 50.5; PLATELET COUNT 165 10^3/uL (140-440); RED BLOOD COUNT 4.54 10^6/ul (4.20-5.40); WHITE BLOOD COUNT 6.37 K/ul (4.6-10.2)
[2016-11-29 06:44] LABS: ALBUMIN 3.1 g/dL (3.4-5.0); ALBUMIN/GLOBULIN RATIO 0.91; ANION GAP 14.9; BILIRUBIN,TOTAL 0.33 mg/dL (0.00-1.20); BUN/CREATININE RATIO 15.38; CALCIUM 9.2 mg/dL (8.2-10.2); CREATININE 0.78 mg/dL (0.60-1.30); POTASSIUM 3.9 mmol/L (3.5-5.10); TOTAL PROTEIN 6.5 g/dL (6.4-8.2)
[2016-11-29] MEDS: LANTUS SUBCUT SCH (09:17)
[2016-11-29] MEDS: ULTRAM PO SCH (09:17)
[2016-11-29] MEDS: GLUCOPHAGE PO SCH (09:17)
[2016-11-29] MEDS: ASPIRIN CHEWABLE PO SCH (09:17)
[2016-11-29] MEDS: KLONOPIN PO SCH (09:18)
[2016-11-29] MEDS: NEURONTIN PO SCH (09:18)
[2016-11-29] MEDS: PLAVIX PO SCH (09:18)
[2016-11-29] MEDS: ZESTRIL PO SCH (09:18)
[2016-11-29] MEDS: VANCOMYCIN 750 MG in SODIUM CHLORIDE 250 ML IV SCH (09:18)
--- NOTE | 2016-11-29 09:57 | CM.DICTOOL ---
ADMISSION: 11/26/16 12:39 DISCHARGE: 11/29/16 FINAL DIAGNOSIS Diffuse cellulitis of face (Acute) HISTORY OF: HISTORY OF: DM 2 HYPERTHYROIDISM DYSLIPIDEMIA CAD AMI HTN ANGINA COPD GERD ANXIETY DEPRESSION BACK PAIN UTERINE CA S/P HYSTERECTOMY DATE UNKNOWN S/P APPENDECTOMY DATE UNKNOWN S/P CHOLECYSTECTOMY DATE UNKNOWN S/P CABG DATE UNKNOWN LAST VITALS Temp Pulse Resp BP Pulse Ox 98 F 92 H 20 146/92 H 92 L 11/29/16 06:00 11/29/16 06:00 11/29/16 06:00 11/29/16 06:00 11/29/16 06:00 ACTIVE MEDICATIONS Aspirin (Aspirin Chewable) 81 mg PO DAILYWM [facility] Last Admin: 11/28/16 09:27 Dose: 81 mg Clonazepam (Klonopin) 0.5 mg PO TID [facility] Last Admin: 11/28/16 20:56 Dose: 0.5 mg Clopidogrel Bisulfate (Plavix) 75 mg PO DAILY [facility] Last Admin: 11/28/16 10:19 Dose: 75 mg Doxepin HCl (Sinequan) 25 mg PO BEDTIME [facility] Last Admin: 11/28/16 20:56 Dose: 25 mg Gabapentin (Neurontin) 600 mg PO TID [facility] Last Admin: 11/28/16 20:56 Dose: 600 mg Insulin Glargine (Lantus) 40 unit SUBCUT BID [facility] Last Admin: 11/28/16 20:50 Dose: 40 unit Lisinopril (Zestril) 10 mg PO DAILY [facility] Last Admin: 11/28/16 09:27 Dose: 10 mg Metformin HCl (Glucophage) 1,000 mg PO BIDWM [facility] Last Admin: 11/28/16 18:19 Dose: 1,000 mg Nitroglycerin (Nitrostat) 0.4 mg SL Q5MIN X 3 DOSES PRN PRN Reason: Chest Pain Pantoprazole Sodium (Protonix) 40 mg PO BIDAC [facility] Last Admin: 11/29/16 05:43 Dose: 40 mg Sucralfate (Carafate) 1 gm PO ACHS [facility] Last Admin: 11/29/16 05:43 Dose: 1 gm Tramadol HCl (Ultram) 50 mg PO BID [facility] Last Admin: 11/28/16 20:56 Dose: 50 mg ALLERGIES No Known Allergies Allergy (Uncoded 11/26/16 11:02) NEW PRESCRIPTIONS: NEW MEDICATIONS: 1. CLINDAMYCIN 300MG PO TID X 5 DAYS. 2. BACTRIM DS PO TID X 5 DAYS. 3. TYLENOL 650MG PO EVERY 4 HOURS NEEDED FOR PAIN. SMOKING: NON SMOKER DISEASE SPECIFIC EDUCATION: CELLULITIS DRUG ABUSE - DO NOT USE NON-PRESCRIPTION DRUGS. ESPECIALLY DO NOT SNORT DRUGS. MEDICATIONS PROBIOTICS LAB REVIEW: 11/29/16 05:30 11/29/16 05:30 11/29/16 05:30: WBC 6.37, RBC 4.54, Hgb 13.1, Hct 39.8, MCV 87.7, MCH 28.9, MCHC 32.9, RDW Coeff of Heraclio 12.4, Plt Count 165, Immature Gran % (Auto) 0.3, Neut % (Auto) 50.5, Lymph % (Auto) 38.6, Coffee % (Auto) 5.7, Eos % (Auto) 4.4, Baso % (Auto) 0.5, Immature Gran # (Auto) 0.0, Neut # 3.2, Lymph # 2.5, Coffee # 0.4, Eos # 0.3, Baso # 0.0, Sodium 144, Potassium 3.9, Chloride 110 H, Carbon Dioxide 23, Anion Gap 14.9, BUN 12, Creatinine 0.78, Estimated GFR (MDRD) 78.00 , BUN/Creatinine Ratio 15.38, Glucose 109, Calcium 9.2, Total Bilirubin 0.33, AST 17, ALT 17, Alkaline Phosphatase 51, Total Protein 6.5, Albumin 3.1 L, Globulin 3.4, Albumin/Globulin Ratio 0.91 11/27/16 05:05: Mumps IgG Ab Index 119.0, Mumps Virus IgM Ab <0.80 PLAN: DISCHARGE TO POLICE TODAY. NEW MEDICATIONS: 1. CLINDAMYCIN 300MG PO TID X 5 DAYS. 2. BACTRIM DS PO TID X 5 DAYS. 3. TYLENOL 650MG PO EVERY 4 HOURS NEEDED FOR PAIN. PROBIOTIC OR YOGURT TID FOR 30 DAYS. FOLLOW UP WITH PRIMARY MD IN 7 TO 10 DAYS. ALERT AND ORIENTED X 4. SPEECH CLEAR. FACIAL EDEMA HAS IMPROVED WELL THE REDNESS TO FACE. RESPIRATIONS EVEN AND UNLABORED. NO COUGH NOTED. HAS BEEN UP AMBULATING WITH STEADY GAIT. VITAL SIGNS HAVE BEEN STABLE. HAS BEEN AFEBRILE. IS INDEPENDENT WITH ACTIVITIES OF DAILY LIVING. DR. KASSANDRA GREGORY
[2016-11-29 10:03] VITALS: BP 131/87; TEMP 97.5
--- NOTE | 2016-12-03 11:47 | DS ---
DATE OF SERVICE: 11/29/16 FINAL DIAGNOSIS: 1. DIFFUSE FACIAL CELLULITIS WITH BILATERAL PAROTITIS/PARODYNIA 2. DIABETES MELLITUS 3. HYPOTHYROIDISM 4. DYSLIPIDEMIA 5. CAD 6. HISTORY OF NM STATUS POST BYPASS SURGERY 7. ANXIETY/DEPRESSION 8. BACK PAIN 9. UTERINE CANCER 10. STATUS POST HYSTERECTOMY 11. APPENDECTOMY 12. CHOLECYSTECTOMY V/S: At time of discharge, BP 146/82, respiratory rate 92, heart rate 20, temperature 98.0, pulse 92. DISCHARGE INSTRUCTIONS: Followup appointment with primary M.D. in 7 to 10 days. Discharged to the police. MEDICATIONS AT DISCHARGE: 1. Aspirin 2. Klonopin 3. Plavix 4. Doxepin 5. Neurontin 6. Lantus 7. Zestril 8. Glucophage 9. Nitrostat 10. Protonix 11. Carafate 12. Ultram NEW PRESCRIPTIONS: 1. Bactrim DS twice a day 2. Clindamycin 300 mg t.i.d. for 5 more days 3. Tylenol p.r.n. 4. Probiotics [id number] DIET INSTRUCTIONS: 1800 calorie diet ACTIVITY: As the patient tolerates. SMOKING: None DISEASE SPECIFIC EDUCATION: Upper facial cellulitis; risk of cavernous sinus thrombosis discussed, the patient verbalized understanding. Drug use and risk of coronary artery disease discussed in detail, the patient verbalized understanding. She promised that she is not going to do any more drugs. HOSPITAL COURSE: This is a 51-year-old female patient, who is a resident of the nursing home here in [facility]. She woke up with severe facial cellulitis, red, tender and painful face. She came to the emergency room. She was evaluated by the ER physician. CT of the maxillofacial area showed diffuse facial cellulitis with parotid swelling. At that time, in view of risk of cavernous sinus thrombosis from infection, the patient was admitted to the hospital. She was started on IV antibiotics Vancomycin and Zosyn. Tylenol was given for pain. IV fluids were given. Dr. Yu consultation obtained for parotid swelling. He thought it was parodynia, nothing to be done at the present time. Blood cultures, strep screen negative. Pain and swelling were getting better. Drug screen was done and showed methamphetamine and amphetamine positive. Mumps virus showed negative. Influenza was negative. As the patient was doing fine, did not have any problems, CT of the head was done which did not show any masses. No headache present. Swelling and redness of the face almost resolved. At this time , the patient is discharged home. TIME SPENT: More than 45 minutes today. [place]
== END 2016-11-29 10:40 | DRG 603 ==
LOC: ED 10:58 → MEDSURG A 12:39
PROVIDERS: ADMIT Emergency Medicine; ATTEND Emergency Medicine
DX: L03.211 Cellulitis of face (principal); K11.21 Acute sialoadenitis; E11.9 Type 2 diabetes mellitus without complications; I10 Essential (primary) hypertension; J44.9 Chronic obstructive pulmonary disease, unspecified; I25.10 Atherosclerotic heart disease of native coronary artery without angina pectoris; G90.01 Carotid sinus syncope; E78.5 Hyperlipidemia, unspecified; E03.9 Hypothyroidism, unspecified; F41.8 Other specified anxiety disorders; F15.99 Other stimulant use, unspecified with unspecified stimulant-induced disorder; M54.9 Dorsalgia, unspecified; Z86.73 Personal history of transient ischemic attack (TIA), and cerebral infarction without residual deficits; I25.2 Old myocardial infarction; Z79.01 Long term (current) use of anticoagulants; Z79.899 Other long term (current) drug therapy; Z95.1 Presence of aortocoronary bypass graft
CPT/HCPCS: 36415; 80053; 80202; 80306; 82962; 85025; 85379; 86735; 87040; 87081; 87651; 87804; 87880; 96365; 99223; 99233; 99239; 99284

== ENCOUNTER 2017-03-04 09:53 | Inpatient (IN) | payer OTHER ==
[2017-03-04] MEDS ORDERED: DUONEB NEB STA (10:23)
[2017-03-04 10:33] LABS: ABG BASE EXCESS -1 (-2.0-2.0); ABG HCO3 23.2 (22.0-26.0); ABG PCO2 36.5 mmHg (35-45); ABG PH 7.412 (7.35-7.45); ABG TCO2 24 (22.0-28.0)
[2017-03-04] MEDS ORDERED: ROCEPHIN 1 GM in SODIUM CHLORIDE 50 ML IV STA (10:42)
[2017-03-04 10:50] LABS: BASOPHILS % (AUTO) 0.4 % (0.0-3.0); EOSINOPHILS % (AUTO) 0.3 % (0.0-7.0); HEMATOCRIT 37.5 % (37.0-47.0); HEMOGLOBIN 12.1 g/dl (12.0-16.0); IMMATURE GRANULOCYTE % (AUTO) 0.5 % (0.0-5.0); LYMPHOCYTES # (AUTO) 1.2 K/uL (0.60-3.4); LYMPHOCYTES % (AUTO) 16.3 (10.0-50.0); MEAN CORPUSCULAR HEMOGLOBIN 28.6 pg (27.0-31.0); MEAN CORPUSCULAR HGB CONC 32.3 (31.8-35.4); MEAN CORPUSCULAR VOLUME 88.7 fl (81.0-99.0); MONOCYTES # (AUTO) 0.3 K/uL (0.4-2.0); MONOCYTES % (AUTO) 4.5 (0-10); NEUTROPHILS # (AUTO) 5.9 K/ul (2.0-6.9); PLATELET COUNT 197 10^3/uL (140-440); RED BLOOD COUNT 4.23 10^6/ul (4.20-5.40)
--- NOTE | 2017-03-04 11:03 | DI ---
Exam: Chest one-view. HISTORY: Chest pain. Comparison: 11/11/2016. Findings: Portable image of the chest demonstrates moderately expanded lungs with diffuse bilateral pulmonary vascular congestion. There is blunting of the right costophrenic angle. Mild alveolar o pacities noted at the lung bases. Cardiac silhouette appears diffusely enlarged. Postoperative liliana nges are again noted in the chest. The skeletal structures are unchanged with mild dextroscoliosis. Impressions: Findings of congestive heart failure with cardiomegaly, pulmonary vascular congestion and a probable small right pleural effusion. Follow-up PA and lateral radiographs of the chest afte r appropriate therapy are recommended. Mild bibasilar atelectasis or pneumonia. Redemonstration of changes of prior cardiac bypass.
[2017-03-04 11:18] LABS: ALBUMIN 3.7 g/dL (3.4-5.0); ALBUMIN/GLOBULIN RATIO 1.16; ANION GAP 17.9; BILIRUBIN,TOTAL 1.7 mg/dL (0.00-1.20); BUN/CREATININE RATIO 10.12; CREATININE 0.79 mg/dL (0.60-1.30); POTASSIUM 2.9 mmol/L (3.5-5.10); TOTAL PROTEIN 6.9 g/dL (6.4-8.2); TROPONIN I 0.039 ng/ml (0.0000-0.4000)
[2017-03-04] MEDS ORDERED: ROCEPHIN ONE (11:21)
[2017-03-04] MEDS ORDERED: K-DUR PO STA (11:32)
[2017-03-04] MEDS ORDERED: LASIX IVP STA (11:42)
--- NOTE | 2017-03-04 11:51 | ED.PDOC ---
General ED Provider: Dr. SHANNON COPPOLA JR Chief Complaint: Respiratory Complaint Stated Complaint: COUGH SHORT OF AIR FOR TWO WEEKS Time Seen by Physician: 20:00 Mode of Arrival: Walk-In Information Source: Patient Exam Limitations: No limitations [facility] Documentation Reviewed and Agree: No Review of Systems - Review Of Systems Constitutional: Reports: Malaise, Weakness Eyes: Reports: No symptoms Ears, Nose, Mouth, Throat: Reports: No symptoms Respiratory: Reports: Cough, Short of air Cardiac: Reports: Edema GI: Reports: No symptoms : Reports: No symptoms Musculoskeletal: Reports: No symptoms Skin: Reports: No symptoms Neurological: Reports: No symptoms Endocrine: Reports: No symptoms Hematologic/Lymphatic: Reports: No symptoms All Other Systems: Other Past Medical History - Past Medical History Previously Healthy: Yes Endocrine: Reports: DM 1, DM 2, Hyperthyroid (old record), Dyslipidemia (old record) Cardiovascular: Reports: CAD, DE, Hypertension, Angina (old record) Respiratory: Reports: COPD Hematological: Reports: None Gastrointestinal: Reports: None, GERD (old record; protonix) Genitourinary: Reports: None, UTI ( FREQUENT UTI) Neuro/Psych: Reports: None, Anxiety (old record), Depression (old record) Musculoskeletal: Reports: Back Pain (CHRONIC NECK AND BACK PAIN) Cancer: Reports: Other (UTERINE CA) Last Menstrual Period: NA Other Pertinent Past Medical History: - Surgical History General Surgical History: Reports: Hysterectomy, Appendectomy, Cholecystectomy, CABG, Other - Family History Family History: Reports: Unknown - Social History Smoking Status: Former smoker Hx Substance Use: Yes Alcohol Screening: None Physical Exam - Physical Exam Appearance: Ill-appearing, Obese Ill-appearing: Moderate Pain Distress: Mild Eyes: ASHOK ENT: Ears normal, Nose normal, Oropharynx normal Neck: Supple Respiratory: Airway patent, Crackles, Rhonchi, Wheezes Cardiovascular: RRR, Pulses normal GI/: Soft, Nontender Musculoskeletal: Normal strength, ROM intact, No calf tenderness, Edema Skin: Warm, Dry, Pale Neurological: Alert, Oriented Critical Care Note - Critical Care Note Total Time (mins): 35 Course - Course Hematology/Chemistry: 03/04/17 10:20 03/04/17 10:40 Orders, Labs, Meds: Lab Review 03/04/17 03/04/17 10:20 10:40 WBC 7.50 RBC 4.23 Hgb 12.1 Hct 37.5 MCV 88.7 MCH 28.6 MCHC 32.3 RDW Coeff of Heraclio 14.5 Plt Count 197 Immature Gran % (Auto) 0.5 Neut % (Auto) 78.0 Lymph % (Auto) 16.3 White % (Auto) 4.5 Eos % (Auto) 0.3 Baso % (Auto) 0.4 Immature Gran # (Auto) 0.0 Neut # 5.9 Lymph # 1.2 White # 0.3 L Eos # 0.0 Baso # 0.0 D-Dimer (Manual) 1162.24 Puncture Site R rad O2 Saturation 86.0 L ABG pH 7.412 ABG pCO2 36.5 ABG pO2 50.0 L* ABG HCO3 23.2 ABG Total CO2 24 ABG Base Excess -1 Terrell Test + FiO2 % 21.0 Sodium 143 Potassium 2.9 L Chloride 106 Carbon Dioxide 22 Anion Gap 17.9 BUN 8 Creatinine 0.79 Estimated GFR (MDRD) 76.00 BUN/Creatinine Ratio 10.12 Glucose 270 H Lactic Acid 21.2 H Calcium 9.0 Total Bilirubin 1.70 H AST 40 H ALT 47 Alkaline Phosphatase 51 Total Creatine Kinase 77 Troponin I 0.0390 B-Natriuretic Peptide 1725 H Total Protein 6.9 Albumin 3.7 Globulin 3.2 Albumin/Globulin Ratio 1.16 Procalcitonin < 0.05 Orders Category Date Time Status ABG DRAW REQUEST Stat CARDIO 03/04/17 10:21 Completed EKG-(ED ONLY) Stat CARDIO 03/04/17 10:20 Completed NEBULIZER TREATMENT Stat CARDIO 03/04/17 10:23 Completed ED APPLY O2 .ONCE EMERGENCY 03/04/17 10:20 Active ED IV/MEDIPORT/POWERPORT .ONCE EMERGENCY 03/04/17 10:20 Active O2 [ED APPLY O2] .ONCE EMERGENCY 03/04/17 10:44 Active ABG Stat LAB 03/04/17 10:20 Completed B-TYPE NATRIURETIC PEPTIDE Stat LAB 03/04/17 10:40 Completed BLOOD CULTURE Stat LAB 03/04/17 10:40 Received CBC W/ AUTO DIFF Stat LAB 03/04/17 10:20 Completed COMPREHENSIVE METABOLIC PANEL Stat LAB 03/04/17 10:40 Completed CREATINE KINASE Stat LAB 03/04/17 10:40 Completed D-DIMER Stat LAB 03/04/17 10:40 Completed LACTIC ACID Stat LAB 03/04/17 10:40 Completed PROCALCITONIN Stat LAB 03/04/17 10:40 Completed TROPONIN I Stat LAB 03/04/17 10:40 Completed 0.9 % Sodium Chloride [Saline Flush] MEDS 03/04/17 10:20 Active 1 syr IVF PRN PRN Ceftriaxone Sodium [Rocephin] MEDS 03/04/17 11:21 Discontinued 1 gm .ROUTE .STK-MED ONE Ceftriaxone Sodium [Rocephin] 1 gm MEDS 03/04/17 10:42 Discontinued 0.9 % Sodium Chloride [Sodium Chloride] 50 ml IV ONCE Furosemide [Lasix] MEDS 03/04/17 11:42 Discontinued 20 mg IVP ONCE STA Ipratropium/Albuterol Neb [Duoneb] MEDS 03/04/17 10:23 Discontinued 1 vial NEB ONCE STA Potassium Chloride [K-Dur] MEDS 03/04/17 11:32 Discontinued 20 meq PO ONCE STA Potassium Chloride/D5-0.45NACL [D5%-1/2Ns-KCl 30 Meq/l MEDS 03/04/17 12:00 Discontinued IV Jennifer] 1,000 ml IV 42 mls/hr CHEST, 1V AP ONLY Stat RADS 03/04/17 10:20 Completed U/S VENOUS SCAN JAMES LEGS Stat RADS 03/04/17 10:20 Ordered Medications Generic Name Dose Route Start Last Admin Trade Name Freq PRN Reason Stop Dose Admin Potassium Chloride 20 meq/ 1,010 mls @ 50 mls/hr 03/04/17 12:00 Potassium Chloride/Dextrose/ IV Sod Cl .[id number] ABIGAIL Sodium Chloride 1 syr 03/04/17 10:20 Saline Flush IVF PRN PRN To flush IV Discontinued Medications Generic Name Dose Route Start Last Admin Trade Name Freq PRN Reason Stop Dose Admin Albuterol/Ipratropium 1 vial 03/04/17 10:23 03/04/17 10:30 Duoneb NEB 03/04/17 10:24 1 vial ONCE STA Administration Furosemide 20 mg 03/04/17 11:42 Lasix IVP 03/04/17 11:43 ONCE STA Ceftriaxone Sodium 1 gm/ 50 mls @ 75 mls/hr 03/04/17 10:42 03/04/17 11:34 Sodium Chloride IV 03/04/17 11:21 75 mls/hr ONCE STA Administration Potassium Chloride/Dextrose/Sod Cl 1,000 mls @ 42 mls/hr 03/04/17 12:00 D5%-1/2ns-Kcl 30 Meq/L Iv Jennifer IV .[id number] ABIGAIL Potassium Chloride 20 meq 03/04/17 11:32 K-Dur PO 03/04/17 11:33 ONCE STA Vital Signs: Temp Pulse Resp BP Pulse Ox 03/04/17 09:56 97.6 F 92 H 32 H 154/111 H 88 L Departure - Departure Time of Disposition: 11:52 Disposition: ADMITTED INPATIENT Discharge Problem: Hyponatremia CHF (congestive heart failure) Qualifiers: Congestive heart failure type: systolic Congestive heart failure chronicity: acute on chronic Qualifier Code: (I50.23) Acute on chronic systolic (congestive ) heart failure Condition: Fair Pt referred to PMD for follow-up: No (HOSPITALIST) Allergies/Adverse Reactions: Allergies No Known Allergies Allergy (Uncoded 03/04/17 09:55) Home Medications: Ambulatory Orders Aspirin [Aspirin Chewable] 81 mg PO DAILYWM 11/11/16 Clonazepam [Klonopin] 0.5 mg PO TID 11/11/16 Clopidogrel Bisulfate [Plavix] 75 mg PO DAILY 11/11/16 Doxepin HCl 25 mg PO BEDTIME 11/11/16 Gabapentin [Neurontin] 600 mg PO TID 11/11/16 Lisinopril 10 mg PO DAILY 11/11/16 Metformin HCl 1,000 mg PO BID #60 tablet 11/11/16 Pantoprazole Sodium [Protonix] 40 mg PO BIDAC #60 tablet. 11/11/16 Sucralfate Susp [Carafate] 1 gm PO ACHS #1 bottle 11/11/16 Tramadol HCl 50 mg PO BID 11/11/16 Insulin Glargine,Hum.rec.anlog [Lantus] 80 unit SUBCUT DAILY 11/26/16 Lactobacillus Acidophilus [Acidophilus] 1 each PO TID 03/04/17
[2017-03-04] MEDS ORDERED: D5%-1/2NS-KCL 30 MEQ/L IV SOL 1,000 ML IV SCH (12:00)
[2017-03-04] MEDS ORDERED: ROBITUSSIN DM SYRUP PO PRN (12:09)
[2017-03-04] MEDS ORDERED: TYLENOL PO PRN (12:10)
[2017-03-04] MEDS ORDERED: KLONOPIN PO PRN (12:14)
[2017-03-04] MEDS: [UNRECOGNIZED DRUG - MIXTURE] IV SCH (13:52)
[2017-03-04] MEDS: NEURONTIN PO SCH ×2 (14:16→21:06)
[2017-03-04] MEDS: LACTOBACILLUS ACIDOPHILUS PO SCH ×2 (14:18→21:05)
[2017-03-04] MEDS ORDERED: NON-FORMULARY MEDICATION (Gabapentin [Neurontin] 600 MG) PO SCH ×22 (15:00)
[2017-03-04] MEDS ORDERED: CARAFATE PO SCH (17:00)
[2017-03-04] MEDS: PROTONIX PO SCH (17:00)
[2017-03-04] MEDS: GLUCOPHAGE PO SCH (17:00)
[2017-03-04] MEDS ORDERED: DECADRON 4 MG/ML SDV IVP STA (17:10)
[2017-03-04] MEDS: DUONEB NEB SCH ×2 (17:20→23:01)
[2017-03-04] MEDS: HUMULIN R SUBCUT PRN ×2 (17:47→21:06)
[2017-03-04 19:15] LABS: TROPONIN I 0.046 ng/ml (0.0000-0.4000)
[2017-03-04] MEDS ORDERED: NON-FORMULARY MEDICATION (Metformin Hcl [Metformin Hcl] 1,000 MG) PO SCH ×22 (21:00)
[2017-03-04] MEDS: ALDACTONE PO SCH (21:06)
[2017-03-04] MEDS: ULTRAM PO SCH (21:06)
[2017-03-04] MEDS: SINEQUAN PO SCH (21:06)
[2017-03-05 02:16] LABS: BASOPHILS % (AUTO) 0.4 % (0.0-3.0); EOSINOPHILS % (AUTO) 0.1 % (0.0-7.0); HEMATOCRIT 35.8 % (37.0-47.0); HEMOGLOBIN 11.4 g/dl (12.0-16.0); LYMPHOCYTES # (AUTO) 1.4 K/uL (0.60-3.4); LYMPHOCYTES % (AUTO) 20.3 (10.0-50.0); MEAN CORPUSCULAR HEMOGLOBIN 28.4 pg (27.0-31.0); MEAN CORPUSCULAR HGB CONC 31.8 (31.8-35.4); MEAN CORPUSCULAR VOLUME 89.1 fl (81.0-99.0); MONOCYTES # (AUTO) 0.3 K/uL (0.4-2.0); NEUTROPHILS # (AUTO) 5.2 K/ul (2.0-6.9); NEUTROPHILS % (AUTO) 74.2; PLATELET COUNT 192 10^3/uL (140-440); RED BLOOD COUNT 4.02 10^6/ul (4.20-5.40); WHITE BLOOD COUNT 7.01 K/ul (4.6-10.2)
[2017-03-05 02:42] LABS: TROPONIN I 0.029 ng/ml (0.0000-0.4000)
[2017-03-05 02:55] LABS: ALBUMIN 3.6 g/dL (3.4-5.0); ALBUMIN/GLOBULIN RATIO 1.16; ANION GAP 15.5; BILIRUBIN,TOTAL 1.02 mg/dL (0.00-1.20); BUN/CREATININE RATIO 12.79; CREATININE 0.86 mg/dL (0.60-1.30); POTASSIUM 3.5 mmol/L (3.5-5.10); TOTAL PROTEIN 6.7 g/dL (6.4-8.2)
[2017-03-05] MEDS: DUONEB NEB SCH ×4 (05:03→23:05)
[2017-03-05] MEDS: HUMULIN R SUBCUT PRN ×4 (05:41→20:54)
[2017-03-05] MEDS: PROTONIX PO SCH ×2 (05:41→16:19)
[2017-03-05] MEDS: LASIX IVP SCH (05:41)
[2017-03-05] MEDS ORDERED: COREG PO SCH ×2 (08:00)
[2017-03-05] MEDS: ASPIRIN CHEWABLE PO SCH (08:06)
[2017-03-05] MEDS: ZESTRIL PO SCH (08:07)
[2017-03-05] MEDS: ULTRAM PO SCH ×2 (08:07→20:55)
[2017-03-05] MEDS: PLAVIX PO SCH (08:07)
[2017-03-05] MEDS: NEURONTIN PO SCH ×3 (08:07→20:55)
[2017-03-05] MEDS: GLUCOPHAGE PO SCH ×2 (08:07→16:33)
[2017-03-05] MEDS: ALDACTONE PO SCH (08:07)
[2017-03-05] MEDS: LANTUS SUBCUT SCH (08:10)
[2017-03-05] MEDS: LACTOBACILLUS ACIDOPHILUS PO SCH ×3 (08:16→20:55)
[2017-03-05] MEDS: COREG PO SCH ×2 (08:47→16:33)
[2017-03-05] MEDS ORDERED: DECADRON 4 MG/ML SDV IVP ONE (09:00)
--- NOTE | 2017-03-05 09:19 | HP ---
CHIEF COMPLAINT: Shortness of breath. SOURCE OF HISTORY: Patient. HISTORY OF PRESENT ILLNESS: The patient claimed to have been experiencing cough for about two weeks prior to this admission. She also had increasing shortness of breath and worse on the day of presentation to the emergency room. The worsening dated back two days ago. After workup the patient was felt to need admission and was then admitted. The work up in the emergency room prior to admission consisted of a CBC, unremarkable, arterial blood gases showing moderate hypoxemia, normal pH 7.412. D-Dimer elevated 1,162. BNP elevated 1725. Blood sugar 270. Lactic acid 21.2, upper normal 19.8. Procalcitonin normal at 0.05 and less. PAST PERSONAL HISTORY: Cardiac bypass 2013, four vessels. Frequent kidney infections, hysterectomy, [facility] counselling, cholecystectomy. Diabetes mellitus, hypertension, malignancy, myocardial infarction and uterine carcinoma. FAMILY HISTORY: Some members of the family had hypertension, diabetes mellitus. SOCIAL HISTORY: The patient is a and now residing at [facility]. She stopped smoking some 8 months ago and denies any alcohol use or abuse. MEDICATIONS: Listed prior to this admission, Lisinopril 10 mg daily, Sucralfate 1 gram before meals and hs, Tramadol 50 mg twice a day, Aspirin 81 mg daily, Neurontin 600 mg three times a day, Clonazepam 0.5 mg three times a day, Plavix 75 mg daily, Doxepin 25 mg at bedtime, Pantoprazole 40 mg BID, Metformin 1000 mg twice daily, Insulin Glargine, Humalog 80 units subq daily and Lactobacillus Acidophilus one cap three times a day. ALLERGIES: No known drug allergies. REVIEW OF SYSTEMS: CONSTITUTIONAL: The patient had no fever and no chills, but some fatigue because of the shortness of breath. HOSPICE CASE MANAGER: The patient denies any headaches or visual disturbances or ataxia or loss of consciousness. VISUAL: Denies any blurred vision, double vision or transient loss of vision. AUDITORY: The patient's hearing appears to be adequate. Denies any tinnitus, pain or drainage. RESPIRATORY: The patient had been coughing for the last two weeks with increasing shortness of breath upon presentation. The shortness of breath had worsened in the last two days prior to admission. CARDIOVASCULAR: The patient denies any chest pain or chest oppression. GASTROINTESTINAL: No nausea or vomiting or diarrhea. The appetite seemed to be okay. GENITOURINARY: Denies any pain on urination, as well as no significant frequency. MUSCULOSKELETAL: The patient is alert with movement of all extremities. INTEGUMENT: Denies any rash or pruritus. ENDOCRINE: Negative, although the patient is somewhat obese. HEMATOLOGIC: No history of prolonged bleeding or easy bruising. PSYCHIATRIC: Affect is okay. PHYSICAL EXAMINATION: GENERAL: We have a 51 year old female who is currently residing in [facility] and was brought to the hospital and after work up was subsequently admitted with a diagnosis of pneumonia. VITAL SIGNS: On the floor showed a temperature of 98.8, pulse 105, blood pressure 154/100, respiratory rate 20, oxygen saturation 98 with 2 liters nasal. The patient weighs 175 pounds and stands 5'4". HEAD: Unremarkable. FACE: Symmetrical and equal with no facial weakness. EYES: Pupils equal/reactive to light about 3 mm in size. Conjunctivae not pale. Sclerae not icteric. MOUTH: Edentulous. THROAT: No inflammation, tumors or exudate. NECK: No masses. No bruit. No tenderness. No rigidity. CHEST: Symmetrical and equal with good expansion with no remarkable tenderness. LUNGS: Breath sounds are heard in both sides with rales at the bases. HEART: Audible and regular with good tones. No murmurs. ABDOMEN: Protuberant, soft with no remarkable tenderness. No masses palpable. Bowel sounds are active. EXTERNAL GENITALIA: Not examined. PELVIC AND RECTAL: Not done. LOWER EXTREMITIES: Essentially symmetrical and equal. Posterior tibials absent. UPPER EXTREMITIES: Symmetrical and equal. ASSESSMENT: 1. SHORTNESS OF BREATH-CONGESTIVE HEART FAILURE 2. COPD WITH POSSIBLE EXACERBATION 3. CHRONIC TOBACCO USE AND ABUSE, STOPPED 8 MONTHS AGO 4. DIABETES MELLITUS ON INSULIN 5. DIABETIC NEUROPATHY 6. HYPERTENSION 7. CORONARY ARTERY DISEASE, STATUS MA AND POST BYPASS 8. ELEVATED BMI 9. QUESTIONABLE HISTORY OF GERD MTDD
--- NOTE | 2017-03-05 10:51 | PCM.CONS ---
CONSULTING PROVIDER: Dr. OUSMANE LOUIS ATTENDING PROVIDER: Dr. Roberta PLAZA DATE OF SERVICE: 03/05/17 SUBJECTIVE: This 51 year old WHITE/ F was hospitalized 03/04/17 with respiratory failure and hypoxemia. The patient also has chest pain some what a typical for coronary insufficiency. She is still hypoxic. REVIEW OF SYSTEMS: CONSTITUTIONAL: No night sweats. No fatigue, malaise, lethargy. No fever or chills. HEENT: Eyes: No visual changes. No eye pain. No eye discharge. ENT: No runny nose. No epistaxis. No sinus pain. No odynophagia. No congestion. RESPIRATORY: No cough, no congestion. No hemoptysis. CARDIOVASCULAR: No angina symptoms. No CHF symptoms. No atypical chest pain for CAD. No palpitations. No shortness of breath. GASTROINTESTINAL: No abdominal pain. No nausea or vomiting. No diarrhea or constipation. No hematemesis. No hematochezia. GENITOURINARY: No urgency. No frequency. No dysuria. No hematuria. No obstructive symptoms. No discharge. No pain. No significant abnormal bleeding. MUSCULOSKELETAL: No musculoskeletal pain; no joint swelling. NEUROLOGICAL: Awake, alert, oriented to time, place and person. No headache. No neck pain. No syncope. No seizures. No dizziness. PSYCHIATRIC: Not anxious. No depression. No suicidal thoughts. No homicidal thoughts. SKIN: No rash. No lesions. No wounds. ENDOCRINE: No unexplained weight loss. No weight gain. HEMATOLOGIC/LYMPHATIC: No anemia. No purpura. No petechiae. No prolonged or excessive bleeding. No palpable lymph nodes. PHYSICAL EXAMINATION: GENERAL: The patient is awake, alert and oriented to time, place and person, lying in bed in no distress. VITAL SIGNS: Temperature 97.8 F, Pulse 97, Respiratory Rate 16, BP 145/98, Pulse Ox 98% HEENT: Head normocephalic, atraumatic. Eyes: Extraocular muscles are intact. Pupils are equal, round and reactive to light and accommodation. Ears: No lesions. Nose appeared normal. Throat: No exudate or erythema. NECK: Supple. No JVD, no carotid bruit. No lymphadenopathy or thyromegaly. LUNGS: Decreased with mild wheeze. Percussion note normal. Chest symmetrical. HEART: S1, S2, no S3. No murmurs. No cyanosis or clubbing. No ascites. Pulses: Dorsalis pedis and posterior tibial pulses +1 to +2 both sides. ABDOMEN: Soft. Non-tender. Bowel sounds active. No CVA tenderness. No mass felt. EXTREMITIES: No edema. Full range of motion of all extremities, equal. NEUROLOGIC: No focal deficit. Cranial nerves II through XII are grossly intact. No headache, no double vision or headache. SKIN: Not dry. Intact. Turgor-normal. LYMPHATIC: No palpable lymph nodes/no lymphedema. MUSCULOSKELETAL: Normal joints with no swelling. Muscle tone is normal. LAB REVIEW: 03/05/17 02:14 03/05/17 02:14 03/05/17 02:14: WBC 7.01, RBC 4.02 L, Hgb 11.4 L, Hct 35.8 L, MCV 89.1, MCH 28.4 , MCHC 31.8, RDW Coeff of Heraclio 14.5, Plt Count 192, Immature Gran % (Auto) 1.0, Neut % (Auto) 74.2, Lymph % (Auto) 20.3, [place] % (Auto) 4.0, Eos % (Auto) 0.1, Baso % (Auto) 0.4, Immature Gran # (Auto) 0.1, Neut # 5.2, Lymph # 1.4, [place] # 0.3 L, Eos # 0.0, Baso # 0.0, Sodium 145, Potassium 3.5, Chloride 108 H, Carbon Dioxide 25, Anion Gap 15.5, BUN 11, Creatinine 0.86, Estimated GFR (MDRD) 69.00 , BUN/Creatinine Ratio 12.79, Glucose 219 H D, Calcium 9.0, Total Bilirubin 1.02 , AST 30, ALT 42, Alkaline Phosphatase 56, Total Creatine Kinase 106, Troponin I 0.0290, Total Protein 6.7, Albumin 3.6, Globulin 3.1, Albumin/Globulin Ratio 1.16, TSH 0.177 L 03/04/17 18:40: Total Creatine Kinase 97, Troponin I 0.0460 ASSESSMENT: 1. Respiratory failure, chronic 2. Severe chronic lung disease 3. Coronary artery disease 4. Hypertension 5. History of CHF RECOMMENDATIONS/PLAN: 1. Increase the Coreg to 6.5mg 2. Continue telemetry 3. Education for diabetes mellitus and complication;advised to take mediation 4. Spouting Installer Consultation done 5. A1c foal 6-7 discussed 6. Non HDL goal discussed. 7. Will do echo today; The patient had most of the work up done in December Plan and coordination of the patient's care discussed in the presence of Planning Specialist and Nurse. CONDITION: Stable PROGNOSIS: Poor because of non-compliance SCRIBED BY: RUBÉN HERRING All Source Intelligence Analyst scribed while in presence of service performed by Dr. OUSMANE LOUIS on 03/05/17 ([id number])
[2017-03-05] MEDS: [UNRECOGNIZED DRUG - MIXTURE] IV SCH (11:19)
[2017-03-05 12:26] LABS: CHOL/HDL RATIO 5.3 (4.5-5.5)
--- NOTE | 2017-03-05 13:01 | CONS ---
DATE OF CONSULTATION: 03/04/17 ATTENDING: Dr. Betancourt REASON FOR CONSULTATION: Chest pain which seems to be fairly atypical. HISTORY OF PRESENT ILLNESS: The patient has tightness in the chest but more so when she moves her left shoulder, steady ache type of feeling with mild shortness of breath. The patient also has hypoxemia but has history of severe chronic lung disease. The patient had coronary bypass surgery 2013. REVIEW OF SYSTEMS: CONSTITUTIONAL: No night sweats. No fatigue, malaise, lethargy. No fever or chills. HEENT: Eyes: No visual changes. No eye pain. No eye discharge. ENT: No runny nose. No epistaxis. No sinus pain. No sore throat. No odynophagia. No ear pain. No congestion. RESPIRATORY: No cough, no congestion. No hemoptysis. CARDIOVASCULAR: No angina symptoms. No CHF symptoms. No atypical chest pain for CAD. No palpitations. No shortness of breath. GASTROINTESTINAL: No abdominal pain. No nausea or vomiting. No diarrhea or constipation. No hematemesis. No hematochezia. GENITOURINARY: No urgency. No frequency. No dysuria. No hematuria. No obstructive symptoms. No discharge. No pain. No significant abnormal bleeding. MUSCULOSKELETAL: No musculoskeletal pain. No joint swelling. NEUROLOGICAL: No headache. No neck pain. No syncope. No seizures. No dizziness. PSYCHIATRIC: Not anxious. No depression. No suicidal thoughts. No homicidal thoughts. SKIN: No rash. No lesions. No wounds. ENDOCRINE: No unexplained weight loss. No weight gain. HEMATOLOGIC/LYMPHATIC: No anemia. No purpura. No petechiae. No prolonged or excessive bleeding. No palpable lymph nodes. MEDICATIONS: Lisinopril 10mg PO daily Carafate 1 gram PO ACHS Tramadol 50mg PO twice a day Aspirin 81mg PO daily Neurontin 600mg PO three times a day Klonopin 0.5mg PO three times a day Plavix 75mg PO daily Doxepin 25mg PO bedtime Protonix 40mg PO twice a day Metformin 1,000mg PO twice a day Lantus 80 unit SUBCUT daily Acidophilus 1 each PO daily ALLERGIES: No known allergies PAST MEDICAL HISTORY: Hypertension Dyslipidemia Diabetes Mellitus COPD PAST SURGICAL HISTORY: CABG x4 2014 Sternum removed Hysterectomy Cholecystectomy SOCIAL/PERSONAL/FAMILY HISTORY: The patient is a and now resides at [facility]. She stopped smoking some 8 months ago and denies any alcohol use or abuse. Some members of the family had hypertension and diabetes mellitus. PHYSICAL EXAMINATION: GENERAL: The patient is sleepy right now. No distress. VITAL SIGNS: Temperature 97.6, pulse 92, respiratory rate 32, blood pressure 154 /111 and pulse ox 88% HEENT: Head normocephalic, atraumatic. Eyes: Extraocular muscles are intact. Pupils are equal, round and reactive to light and accommodation. Ears: No lesions. Nose appeared normal. Throat: No exudate or erythema. NECK: Supple. No JVP, no carotid bruit. No lymphadenopathy or thyromegaly. Some intercostal space retraction noted. LUNGS: Faint wheezing, expiratory noted. Percussion note normal. Chest symmetrical. HEART: S1, S2, no S3. No murmurs. No cyanosis or clubbing. No ascites. Pulses: Dorsalis pedis and posterior tibial pulses +1 Bilaterally. ABDOMEN: Soft. Nontender. Bowel sounds active. No CVA tenderness. No mass felt. EXTREMITIES: No edema. Full range of motion of all extremities, equal. NEUROLOGIC: No focal deficit. Cranial nerves II through XII are grossly intact. No headache, no double vision or headache. SKIN: Not dry. Intact. Turgor - normal. LYMPHATIC: No palpable lymph nodes/no lymphedema. MUSCULOSKELETAL: Normal joints with no swelling. Muscle tone is normal. LABS: EKG sinus rhythm. No specific ST-T wave change. No acute changes. Cardiac markers are negative. Chest x-ray bibasilar atelectasis versus pneumonia. ASSESSMENT: 1. Chest pain seems to be atypical 2. Coronary artery disease 3. Significant history of chronic lung disease 4. Hypoxemia 5. Dyslipidemia 6. TIA 7. Diabetes Mellitus PLAN: 1. BMI 30 and advised to lose weight 2. At present time will do echocardiogram in the morning, echo to be done to evaluate LV function 3. First thing would be to rule out any acute event marker, infarction or ischemia 4. Telemetry serial 5. Serial cardiac markers 6. At at present time the patient's condition seems to be stable. Agreed with present management with continuation of all medications. 7. Will add Coreg 3.125mg PO twice a day 8. 4mg IV Decadron today and in the morning. The patient's ABG showed pO2 50, pCO2 36, pH 7.41 with 86% saturation. CONDITION: Stable Thanks for referral. Will follow. MTDD
[2017-03-05 18:55] LABS: COCAIN SCREEN,URINE NEGATIVE (NEGATIVE)
[2017-03-05] MEDS: SINEQUAN PO SCH (20:55)
[2017-03-06] MEDS: DUONEB NEB SCH ×3 (05:08→17:42)
[2017-03-06 05:27] LABS: BASOPHILS % (AUTO) 0.3 % (0.0-3.0); EOSINOPHILS # (AUTO) 0.2 K/ul (0.0-0.7); EOSINOPHILS % (AUTO) 2.1 % (0.0-7.0); HEMATOCRIT 37.9 % (37.0-47.0); HEMOGLOBIN 11.5 g/dl (12.0-16.0); IMMATURE GRANULOCYTE % (AUTO) 0.4 % (0.0-5.0); LYMPHOCYTES % (AUTO) 32.2 (10.0-50.0); MEAN CORPUSCULAR HEMOGLOBIN 27.8 pg (27.0-31.0); MEAN CORPUSCULAR HGB CONC 30.3 (31.8-35.4); MEAN CORPUSCULAR VOLUME 91.8 fl (81.0-99.0); MONOCYTES # (AUTO) 0.5 K/uL (0.4-2.0); MONOCYTES % (AUTO) 5.2 (0-10); NEUTROPHILS # (AUTO) 5.6 K/ul (2.0-6.9); NEUTROPHILS % (AUTO) 59.8; PLATELET COUNT 197 10^3/uL (140-440); RED BLOOD COUNT 4.13 10^6/ul (4.20-5.40); WHITE BLOOD COUNT 9.36 K/ul (4.6-10.2)
[2017-03-06] MEDS: PROTONIX PO SCH ×2 (05:43→17:32)
[2017-03-06] MEDS: LASIX IVP SCH (05:47)
[2017-03-06 05:56] LABS: ALBUMIN 3.5 g/dL (3.4-5.0); ALBUMIN/GLOBULIN RATIO 1.13; ANION GAP 11.4; BILIRUBIN,TOTAL 0.98 mg/dL (0.00-1.20); BUN/CREATININE RATIO 26.25; CALCIUM 9.1 mg/dL (8.2-10.2); CREATININE 0.8 mg/dL (0.60-1.30); POTASSIUM 3.4 mmol/L (3.5-5.10); TOTAL PROTEIN 6.6 g/dL (6.4-8.2)
[2017-03-06] MEDS: GLUCOPHAGE PO SCH ×2 (07:59→17:33)
[2017-03-06] MEDS: ASPIRIN CHEWABLE PO SCH (08:00)
[2017-03-06] MEDS: ALDACTONE PO SCH (08:00)
[2017-03-06] MEDS: ULTRAM PO SCH ×2 (08:00→20:35)
[2017-03-06] MEDS: PLAVIX PO SCH (08:00)
[2017-03-06] MEDS: ZESTRIL PO SCH (08:00)
[2017-03-06] MEDS: NEURONTIN PO SCH ×3 (08:01→20:33)
[2017-03-06] MEDS: COREG PO SCH ×2 (08:01→17:33)
[2017-03-06] MEDS: LACTOBACILLUS ACIDOPHILUS PO SCH ×3 (08:54→22:26)
[2017-03-06] MEDS: LANTUS SUBCUT SCH (08:54)
[2017-03-06] MEDS: [UNRECOGNIZED DRUG - MIXTURE] IV SCH (09:51)
[2017-03-06] MEDS: HUMULIN R SUBCUT PRN ×3 (11:41→20:34)
[2017-03-06] MEDS ORDERED: NITROSTAT SL PRN (11:45)
[2017-03-06] MEDS: AVELOX 400 MG in PREMIX 250 ML NS 1 BAG IV SCH (13:07)
--- NOTE | 2017-03-06 13:39 | CT ---
EXAM: CT chest without contrast HISTORY: Follow-up abnormal chest radiograph COMPARISON: Chest radiograph 03/04/2017 TECHNIQUE: CT chest performed without intravenous contrast. Coronal and sagittal reformatted image s obtained. FINDINGS: Thyroid and thoracic inlet unremarkable. Heart is markedly enlarged. Coronary calcifica tions. No pericardial effusion. Aorta normal in caliber. Atherosclerosis. Evaluation for lympha denopathy limited without contrast. No lymphadenopathy identified. Calcified left hilar lymph node s, consistent with old granulomatous disease. Liver diffusely decreased attenuation. Patient statu s post cholecystectomy. Visualized portion upper abdomen demonstrates no acute abnormality. No acu te abnormalities of the bones.. 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 Cervical spinal fusi on hardware, incompletely imaged. Mild degenerative change in the spine. Central airway patent. S mall bilateral pleural effusions. Interlobular septal thickening associated with bilateral ground-g lass infiltrates and mosaic attenuation most consistent with pulmonary edema. Small bilateral pleur al effusions. Mild scattered atelectasis. Stable 3 mm pulmonary nodule right lung, unchanged from 2013, consistent with benign etiology. No pneumothorax. IMPRESSION: 1. Marked cardiomegaly with pulmonary edema and small bilateral pleural effusions. 2. Coronary calcifications. Atherosclerosis. 3. Hepatic steatosis. 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
--- NOTE | 2017-03-06 14:00 | PCM.CONS ---
CONSULTING PROVIDER: Dr. OUSMANE LOUIS ATTENDING PROVIDER: Dr. Roberta PLAZA DATE OF SERVICE: 03/06/17 SUBJECTIVE: This 51 year old WHITE/ F was hospitalized 03/04/17. The patient is a resident of [facility]. The patient was admitted with chest pain and some was atypical for cardiac. The patient is not in distress. Hypoxemia seems to have resolved. The patient is non-compliant. She should be wearing oxygen all the time. She will have three step test so she can have oxygen [facility]. REVIEW OF SYSTEMS: CONSTITUTIONAL: No night sweats. No fatigue, malaise, lethargy. No fever or chills. Talkative. HEENT: Eyes: No visual changes. No eye pain. No eye discharge. ENT: No runny nose. No epistaxis. No sinus pain. No odynophagia. No congestion. RESPIRATORY: No cough, no congestion. No hemoptysis. CARDIOVASCULAR: No angina symptoms. No CHF symptoms. No atypical chest pain for CAD. No palpitations. No shortness of breath. GASTROINTESTINAL: No abdominal pain. No nausea or vomiting. No diarrhea or constipation. No hematemesis. No hematochezia. GENITOURINARY: No urgency. No frequency. No dysuria. No hematuria. No obstructive symptoms. No discharge. No pain. No significant abnormal bleeding. MUSCULOSKELETAL: No musculoskeletal pain; no joint swelling. NEUROLOGICAL: Awake, alert, oriented to time, place and person. No headache. No neck pain. No syncope. No seizures. No dizziness. PSYCHIATRIC: Not anxious. No depression. No suicidal thoughts. No homicidal thoughts. SKIN: No rash. No lesions. No wounds. ENDOCRINE: No unexplained weight loss. No weight gain. HEMATOLOGIC/LYMPHATIC: No anemia. No purpura. No petechiae. No prolonged or excessive bleeding. No palpable lymph nodes. PHYSICAL EXAMINATION: GENERAL: The patient is awake, alert and oriented to place and person, lying in bed in no distress. VITAL SIGNS: Temperature 97 F, Pulse 90, Respiratory Rate 20, BP 129/89, Pulse Ox 98% HEENT: Head normocephalic, atraumatic. Eyes: Extraocular muscles are intact. Pupils are equal, round and reactive to light and accommodation. Ears: No lesions. Nose appeared normal. Throat: No exudate or erythema. NECK: Supple. No JVD, no carotid bruit. No lymphadenopathy or thyromegaly. LUNGS: Decreased and clear to auscultation. Percussion note normal. Chest symmetrical. HEART: S1, S2, no S3. No murmurs. No cyanosis or clubbing. No ascites. Pulses: Dorsalis pedis and posterior tibial pulses +1 to +2 both sides. ABDOMEN: Soft. Non-tender. Bowel sounds active. No CVA tenderness. No mass felt. EXTREMITIES: No edema. Full range of motion of all extremities, equal. NEUROLOGIC: No focal deficit. Cranial nerves II through XII are grossly intact. No headache, no double vision or headache. SKIN: Not dry. Intact. Turgor-normal. LYMPHATIC: No palpable lymph nodes/no lymphedema. MUSCULOSKELETAL: Normal joints with no swelling. Muscle tone is normal. LAB REVIEW: 03/06/17 05:10 03/06/17 05:10 03/06/17 05:10: WBC 9.36, RBC 4.13 L, Hgb 11.5 L, Hct 37.9, MCV 91.8, MCH 27.8, MCHC 30.3 L, RDW Coeff of Heraclio 14.5, Plt Count 197, Immature Gran % (Auto) 0.4, Neut % (Auto) 59.8, Lymph % (Auto) 32.2, [place] % (Auto) 5.2, Eos % (Auto) 2.1, Baso % (Auto) 0.3, Immature Gran # (Auto) 0.0, Neut # 5.6, Lymph # 3.0, Lewis # 0.5, Eos # 0.2, Baso # 0.0, Sodium 146 H, Potassium 3.4 L, Chloride 109 H, Carbon Dioxide 29, Anion Gap 11.4, BUN 21 H, Creatinine 0.80, Estimated GFR ( MDRD) 75.00, BUN/Creatinine Ratio 26.25, Glucose 103, Calcium 9.1, Total Bilirubin 0.98, AST 54 H, ALT 51, Alkaline Phosphatase 50, Total Protein 6.6, Albumin 3.5, Globulin 3.1, Albumin/Globulin Ratio 1.13 03/05/17 17:30: Urine Opiates Screen Negative, Ur Oxycodone Screen Negative, Urine Methadone Screen Negative, Ur Propoxyphene Screen Negative, Ur Barbiturates Screen Negative, U Tricyclic Antidepress Positive, Ur Phencyclidine Scrn Negative, Ur Amphetamine Screen Negative, U Methamphetamines Scrn Negative, U Benzodiazepines Scrn Positive, Urine Cocaine Screen Negative, U Cannabinoids Screen Negative 03/05/17 02:10: Triglycerides 108, Cholesterol 105, LDL Cholesterol, Calc 63, VLDL Cholesterol 22, HDL Cholesterol 20 L, Cholesterol/HDL Ratio 5.3 Echo was done this morning showed enlargement of right ventricular cavity size, Enlarged left ventricular cavity, Mild and Tricuspid regurgitation and LVEF of 25-30%. Valvular structure is normal. ASSESSMENT: 1. Chronic respiratory failure 2. Hypokalemia 3. Non-compliance RECOMMENDATIONS/PLAN: 1. Followup with Dr. Valerio 2. Continuation same 3. Coreg 6.25mg twice a day Plan and coordination of the patient's care discussed in the presence of Regional Transfer Liaison and Nurse. CONDITION: Stable Thanks for referral. SCRIBED BY: Rush THORNE scribed while in presence of service performed by Dr. OUSMANE LOUIS on 03/06/17 ([id number]) Kelly Wall was seen every day after initial consult and last day seen was 03/06.
[2017-03-06] MEDS: SINEQUAN PO SCH (20:33)
[2017-03-07] MEDS: DUONEB NEB SCH ×4 (00:01→17:10)
[2017-03-07 05:15] LABS: BASOPHILS # (AUTO) 0.1 K/uL (0-0.2); BASOPHILS % (AUTO) 0.6 % (0.0-3.0); EOSINOPHILS # (AUTO) 0.2 K/ul (0.0-0.7); EOSINOPHILS % (AUTO) 2.5 % (0.0-7.0); HEMATOCRIT 38.6 % (37.0-47.0); HEMOGLOBIN 11.6 g/dl (12.0-16.0); IMMATURE GRANULOCYTE % (AUTO) 0.4 % (0.0-5.0); LYMPHOCYTES # (AUTO) 2.3 K/uL (0.60-3.4); LYMPHOCYTES % (AUTO) 28.4 (10.0-50.0); MEAN CORPUSCULAR HEMOGLOBIN 27.1 pg (27.0-31.0); MEAN CORPUSCULAR HGB CONC 30.1 (31.8-35.4); MEAN CORPUSCULAR VOLUME 90.2 fl (81.0-99.0); MONOCYTES # (AUTO) 0.4 K/uL (0.4-2.0); MONOCYTES % (AUTO) 5.2 (0-10); NEUTROPHILS # (AUTO) 5.1 K/ul (2.0-6.9); NEUTROPHILS % (AUTO) 62.9; PLATELET COUNT 193 10^3/uL (140-440); RED BLOOD COUNT 4.28 10^6/ul (4.20-5.40)
[2017-03-07 05:39] LABS: ALBUMIN 3.5 g/dL (3.4-5.0); ALBUMIN/GLOBULIN RATIO 1.13; ANION GAP 12.1; BILIRUBIN,TOTAL 0.78 mg/dL (0.00-1.20); BUN/CREATININE RATIO 21.83; CALCIUM 9.1 mg/dL (8.2-10.2); CREATININE 0.87 mg/dL (0.60-1.30); POTASSIUM 3.1 mmol/L (3.5-5.10); TOTAL PROTEIN 6.6 g/dL (6.4-8.2)
[2017-03-07] MEDS: PROTONIX PO SCH ×2 (05:55→17:59)
[2017-03-07] MEDS: LASIX IVP SCH (05:56)
[2017-03-07] MEDS: GLUCOPHAGE PO SCH ×2 (08:58→17:59)
[2017-03-07] MEDS: ASPIRIN CHEWABLE PO SCH (08:58)
[2017-03-07] MEDS: PLAVIX PO SCH (08:59)
[2017-03-07] MEDS: ZESTRIL PO SCH (08:59)
[2017-03-07] MEDS: COREG PO SCH ×2 (08:59→17:59)
[2017-03-07] MEDS: NEURONTIN PO SCH ×2 (08:59→15:12)
[2017-03-07] MEDS: K-DUR PO SCH ×2 (08:59→15:13)
[2017-03-07] MEDS: ULTRAM PO SCH (08:59)
[2017-03-07] MEDS: ALDACTONE PO SCH (08:59)
[2017-03-07] MEDS: AVELOX 400 MG in PREMIX 250 ML NS 1 BAG IV SCH (08:59)
[2017-03-07] MEDS: LANTUS SUBCUT SCH (09:00)
[2017-03-07] MEDS: LACTOBACILLUS ACIDOPHILUS PO SCH ×2 (09:01→15:14)
--- NOTE | 2017-03-07 10:22 | PCM.CONS ---
CONSULTING PROVIDER: Dr. OUSMANE LOUIS ATTENDING PROVIDER: Dr. Roberta PLAZA DATE OF SERVICE: 03/07/17 SUBJECTIVE: This 51 year old WHITE/ F was hospitalized 03/04/17 with chest pain and hypoxemia. The patient's condition has improved. She is not in any distress. REVIEW OF SYSTEMS: CONSTITUTIONAL: No night sweats. No fatigue, malaise, lethargy. No fever or chills. HEENT: Eyes: No visual changes. No eye pain. No eye discharge. ENT: No runny nose. No epistaxis. No sinus pain. No odynophagia. No congestion. RESPIRATORY: No cough, no congestion. No hemoptysis. CARDIOVASCULAR: No angina symptoms. No CHF symptoms. No atypical chest pain for CAD. No palpitations. No shortness of breath. GASTROINTESTINAL: No abdominal pain. No nausea or vomiting. No diarrhea or constipation. No hematemesis. No hematochezia. GENITOURINARY: No urgency. No frequency. No dysuria. No hematuria. No obstructive symptoms. No discharge. No pain. No significant abnormal bleeding. MUSCULOSKELETAL: No musculoskeletal pain; no joint swelling. NEUROLOGICAL: Awake, alert, oriented to time, place and person. No headache. No neck pain. No syncope. No seizures. No dizziness. PSYCHIATRIC: Not anxious. No depression. No suicidal thoughts. No homicidal thoughts. SKIN: No rash. No lesions. No wounds. ENDOCRINE: No unexplained weight loss. No weight gain. HEMATOLOGIC/LYMPHATIC: No anemia. No purpura. No petechiae. No prolonged or excessive bleeding. No palpable lymph nodes. PHYSICAL EXAMINATION: GENERAL: The patient is awake, alert and oriented to time, place and person, lying in bed in no distress. VITAL SIGNS: Temperature 96.8 F, Pulse 88, Respiratory Rate 24, BP 123/87, Pulse Ox 90% HEENT: Head normocephalic, atraumatic. Eyes: Extraocular muscles are intact. Pupils are equal, round and reactive to light and accommodation. Ears: No lesions. Nose appeared normal. Throat: No exudate or erythema. NECK: Supple. No JVD, no carotid bruit. No lymphadenopathy or thyromegaly. LUNGS: Decreased with mild expiratory wheeze. Percussion note normal. Chest symmetrical. HEART: S1, S2, no S3. No murmurs. No cyanosis or clubbing. No ascites. Pulses: Dorsalis pedis and posterior tibial pulses +1 to +2 both sides. ABDOMEN: Soft. Non-tender. Bowel sounds active. No CVA tenderness. No mass felt. EXTREMITIES: No edema. Full range of motion of all extremities, equal. NEUROLOGIC: No focal deficit. Cranial nerves II through XII are grossly intact. No headache, no double vision or headache. SKIN: Not dry. Intact. Turgor-normal. LYMPHATIC: No palpable lymph nodes/no lymphedema. MUSCULOSKELETAL: Normal joints with no swelling. Muscle tone is normal. LAB REVIEW: 03/07/17 05:00 03/07/17 05:00 03/07/17 05:00: WBC 8.10, RBC 4.28, Hgb 11.6 L, Hct 38.6, MCV 90.2, MCH 27.1, MCHC 30.1 L, RDW Coeff of Heraclio 14.5, Plt Count 193, Immature Gran % (Auto) 0.4, Neut % (Auto) 62.9, Lymph % (Auto) 28.4, [place] % (Auto) 5.2, Eos % (Auto) 2.5, Baso % (Auto) 0.6, Immature Gran # (Auto) 0.0, Neut # 5.1, Lymph # 2.3, [place] # 0.4, Eos # 0.2, Baso # 0.1, Sodium 144, Potassium 3.1 L, Chloride 107, Carbon Dioxide 28, Anion Gap 12.1, BUN 19 H, Creatinine 0.87, Estimated GFR (MDRD) 68.00, BUN/Creatinine Ratio 21.83, Glucose 131 H, Calcium 9.1, Total Bilirubin 0.78, AST 46 H, ALT 54, Alkaline Phosphatase 50, Total Protein 6.6, Albumin 3.5 , Globulin 3.1, Albumin/Globulin Ratio 1.13 03/06/17 16:24: B-Natriuretic Peptide 1264 H 03/06/17 05:05: Hemoglobin A1c 8.3 H ASSESSMENT: 1. Hypokalemic RECOMMENDATIONS/PLAN: 1. K-Tab 20meq three times a day 2. Advised to quick smoking 3. Advised regular followup with primary MD 4. Cardiac rehab recommended 5. New Medication Coreg and seems to help with pulse and blood pressure Plan and coordination of the patient's care discussed in the presence of Sugar Sampler and Nurse. CONDITION: Stable Echo showed LV ejection fracture of 35-40% with LVH. Hypokinetic left ventricle. Enlarged right and left ventricular cavity SCRIBED BY: RUBÉN HERRING Tibco Developer scribed while in presence of service performed by Dr. OUSMANE LOUIS on 03/07/17 ([id number])
--- NOTE | 2017-03-07 13:04 | ECHO2D ---
Date of Exam: 03/06/17 Ordering Physician: EVA CHAN Reason for Echo: CHEST PAIN,CHF, CAD, CABG 2011 M-Mode Normal Adult Results LV Dimensions Normal Adult Results AoV Opening excursions >1.6 >1.6 LVEDD-base- 3.5-5.8 5.4 Ao root dimensions 2.0-3.7 2.9 LVESD-base- 3.1-4.6 L. Atrium dimensions 1.9-3.8 5.1 Post. Wall thickness 0.8-1.1 1.3 IV septum (thickness) 0.7-1.2 1.2 Post. Wall excursion 0.72-1.3 0.5 Septal motion 0.2 Systolic motion R. Ventricular cavity 1.5-2.0 2.5 LVEF 60% 27% Paradoxical septal wall motion NORMAL 2-D : HYPOKINETIC LEFT VENTRICLE --NORMAL VALVES--ENLARGED RIGHT VENTRICLE AND LEFT ATRIAL CAVITIES--NO EFFUSION, NO THROMBUS M-MODE: MV: NORMAL AV: NORMAL TV: NORMAL PV: CHAMBER SIZE: ENLARGED LEFT ATRIAL AND RIGHT VENTRICLE CAVITIES WALL MOTION: HYPOKINETIC LEFT VENTRICLE PERICARDIUM: NORMAL INTERPRETATION: 1. LEFT VENTRICULAR HYPERTROPHY 2. HYPOKINETIC LEFT VENTRICLE--LVEF 27% 3. ENLARGED LEFT ATRIAL AND RIGHT VENTRICLE CAVITIES 4. NORMAL VALVES MTDD
[2017-03-07 15:24] VITALS: BP 114/82; TEMP 97
--- NOTE | 2017-03-08 08:12 | PN ---
DATE OF VISIT: 03/04/17 51 year old female is admitted to the hospital because of congestive heart failure, as well as probable CO2 exacerbation with questionable pneumonia. The patient's oximetry is still below normal in spite of 2 liters of oxygen, at 94. It fluctuates, but it is as low as 90. The patient will need oxygen on discharge. The patient was advised that she will be using oxygen at discharge and the oxygen will be discontinued only after the doctor has followed and certified that she no longer needs the use of it. This patient also further advised not to use any extra salt and never to resume smoking. The patient does understand and agreed to continue with the oxygen and so arrangements will be made to deliver the oxygen and the other equipment needed to the place of her residence. [place]
--- NOTE | 2017-03-08 08:45 | PN ---
DATE OF VISIT: 03/05/17 The patient today is alert, oriented, but still some tachypnea with dyspnea. Her CBC showed lower hemoglobin and hematocrit, as well as RBC. WBC and platelet count normal. VITAL SIGNS: 03/05/2017 at 5:45 p.m. showed a temperature of 96.9, pulse 83, blood pressure 114/72, respiratory rate 20, oxygen saturation 96 at 2 Liters. LUNGS: Still has rales on both lung poole. Slightly more on the right, but they are basal. No wheezing. HEART: Audible with good tones and regular. CONDITION: Stable and somewhat improved. Blood cultures remained negative. MTDD
--- NOTE | 2017-03-08 08:55 | PN ---
DATE OF VISIT: 03/06/17 The patient is alert and responsive. She is on 2 liters of nasal oxygen. VITAL SIGNS: At 6 p.m. on 03/06/17 showed a temperature of 98.8, pulse 86, blood pressure 137/96, respiratory rate 22, oxygen saturation 94 at 2 liters. She is not cyanotic. CARDIOPULMONARY: She denies any chest pain. LUNGS: Still has some basal rales, mostly right side. The left is more or less clear. HEART: Audible with good tones and regular. ABDOMEN: Nontender. LOWER EXTREMITIES: No tenderness in the calf muscles. This patient has seen the steam box tender, Dr. Jerez who did an echocardiogram. CT of the chest done 03/06/17 showed marked cardiomegaly with pulmonary edema and small bilateral pleural effusion. Coronary calcifications. Atherosclerosis. 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 LABS: Showed essentially unchanged CBC with slight abnormalities, but not very significant clinically, except the A1C of 8.3 and BNP now at 1264 from 1725 on admission. Her drug screen is positive for tricyclics and benzo. This patient is on these medications. CONDITION: Improved and stable. MTDD
--- NOTE | 2017-03-08 10:54 | DS ---
PATIENT IDENTIFICATION: 51 year old female admitted to the hospital via the emergency room because of increasing shortness of breath. The patient had rales on both lung poole, more on the right side, but no wheezing. Chest x -ray showed mild bibasilar atelectasis or pneumonia. The patient also had findings compatible with congestive heart failure with cardiomegaly and pulmonary vascular congestion. HOSPITAL COURSE: The patient was continued on her home medications; Lisinopril , Sucralfate, Tramadol, Aspirin 81, Gabapentin, Clonazepam, Plavix, Doxepin and Pantoprazole, Metformin,Insulin Glargine-Lantus and Lactobacillus Acidophilus. Sucralfate was discontinued because the patient is already on PPI. The patient was placed on 2 liters of nasal oxygen, DuoNeb nebulizer in the emergency room and then every six hours while on the floor. The patient also received Decadron 4 mg IM once. Moxifloxacin 400 mg daily IV was initiated. The patient today, 03/07/17, is alert and responsive without any dyspnea or tachypnea and no cyanosis. The patient has two children, one in [place] and one in special care [facility]. LUNGS: The lungs has a few rales at the right lower base, the left is clear. No wheezing. HEART: Audible and regular with good tones. ABDOMEN: Protuberant, soft. LOWER EXTREMITIES: Symmetrical and the posterior tibials are still absent. UPPER EXTREMITIES: Symmetrical and equal with good movement. This patient was given Chloride 6.25 mg twice a day, which did reduce the heart rate. Also, Aldactone 25 mg a day because of the congestive heart failure and Lasix was given IV. The patient will need oxygen at her place of residence and that had been arranged already. The patient at the time of discharge was alert , ambulatory, not dyspneic nor tachypneic with no cyanosis. The patient was examined close to 6 o'clock in the evening. I had asked the consulting classer if the patient can be discharged home with regards to the cardiopulmonary condition or status and he said, Yes". He did an echocardiogram showing hypokinetic left ventricle, enlarged right ventricle and left atrial cavities with no effusion, no thrombus. Left ventricular ejection fraction recorded at 27%. PLAN: 1. The patient is to resume all her medications at discharge, except Sucralfate. 2. A prescription for Coreg 6.25 mg one twice a day #30 was written and Aldactone 25 mg #15, one daily. 3. This patient should have a repeat renal panel this coming Saturday and should see the doctor also this coming Saturday. Particular attention is directed towards the potassium because of the Lisinopril and Aldactone together. FINAL DIAGNOSES: 1. CONGESTIVE HEART FAILURE, IMPROVED 2. DECREASED LEFT VENTRICULAR EJECTION FRACTION, 27% 3. CHRONIC OBSTRUCTIVE PULMONARY DISEASE WITH ACUTE EXACERBATION TREATED WITH ANTIBIOTICS 4. DIABETES MELLITUS, UNCONTROLLED 5. ELEVATED BMI 6. HISTORY OF DRUG USE 7. HISTORY OF DIABETIC NEUROPATHY 8. HISTORY OF HYPERTENSION, CONTROLLED 9. HISTORY OF CORONARY ARTERY DISEASE, STATUS POST BYPASS 4 YEARS AGO 10. HISTORY OF GASTROESOPHAGEAL REFLUX DISEASE 11. ELEVATED BMI. 12. PERIPHERAL ARTERIAL DISEASE, ABSENT POSTERIOR TIBIAL PULSES PROGNOSIS: Guarded. MTDD
--- NOTE | 2017-03-13 09:00 | CONS ---
The patient was seen last on consultation on 03/07/17. She was seen everyday after the initial consultation day. + [place]
== END 2017-03-07 18:20 | disposition other institution (70) | DRG 291 ==
LOC: ED 09:53 → MEDSURG B 11:46
PROVIDERS: ADMIT General Practice; ATTEND General Practice
DX: I50.23 Acute on chronic systolic (congestive) heart failure (principal); J18.9 Pneumonia, unspecified organism; J96.11 Chronic respiratory failure with hypoxia; J44.1 Chronic obstructive pulmonary disease with (acute) exacerbation; I10 Essential (primary) hypertension; I51.7 Cardiomegaly; R06.02 Shortness of breath; E87.6 Hypokalemia; E11.65 Type 2 diabetes mellitus with hyperglycemia; E11.40 Type 2 diabetes mellitus with diabetic neuropathy, unspecified; I25.10 Atherosclerotic heart disease of native coronary artery without angina pectoris; I73.9 Peripheral vascular disease, unspecified; F19.21 Other psychoactive substance dependence, in remission; I25.2 Old myocardial infarction; I70.90 Unspecified atherosclerosis; K76.0 Fatty (change of) liver, not elsewhere classified; R63.8 Other symptoms and signs concerning food and fluid intake; Z87.891 Personal history of nicotine dependence; Z95.1 Presence of aortocoronary bypass graft; Z87.19 Personal history of other diseases of the digestive system; Z79.01 Long term (current) use of anticoagulants; Z79.4 Long term (current) use of insulin; Z79.84 Long term (current) use of oral hypoglycemic drugs; Z91.19 Patient's noncompliance with other medical treatment and regimen
CPT/HCPCS: 36415; 80053; 80061; 80074; 80306; 82550; 82803; 82962; 83036; 83605; 83880; 84145; 84443; 84484; 85025; 85379; 87040; 93005; 93010; 94640; 94761; 96365; 96375; 97802; 99223; 99231; 99232; 99239; 99284

== ENCOUNTER 2017-03-12 11:33 | Outpatient (CLI) ==
[2017-03-12 12:29] LABS: ALBUMIN 3.4 g/dL (3.4-5.0); ANION GAP 13.6; BILIRUBIN,TOTAL 0.73 mg/dL (0.00-1.20); BUN/CREATININE RATIO 12.22; CALCIUM 8.9 mg/dL (8.2-10.2); CREATININE 0.9 mg/dL (0.60-1.30); PHOSPHORUS 4.2 mg/dL (2.5-4.9); POTASSIUM 4.6 mmol/L (3.5-5.10); TOTAL PROTEIN 6.8 g/dL (6.4-8.2)
== END 2017-03-12 11:34 | disposition home or self-care (01) ==
LOC: LAB 11:33
PROVIDERS: ATTEND Nurse Practitioner Family
DX: I50.9 Heart failure, unspecified (principal); E87.6 Hypokalemia
CPT/HCPCS: 36415; 80053; 84100

== ENCOUNTER 2019-03-24 15:53 | Outpatient (CLI) | END 2019-03-24 15:54 | disposition home or self-care (01) | LOC: RHC-LAB 15:53 | PROVIDERS: ATTEND Nurse Practitioner Family | DX: E11.9 Type 2 diabetes mellitus without complications (principal); I10 Essential (primary) hypertension | CPT/HCPCS: 36415; 80053; 80061; 83037; 84443; 85025 ==

== ENCOUNTER 2019-03-25 13:21 | Outpatient (CLI) | END 2019-03-25 13:22 | disposition home or self-care (01) | LOC: RHC-LAB 13:21 | PROVIDERS: ATTEND Nurse Practitioner Family | DX: R30.0 Dysuria (principal) | CPT/HCPCS: 81001; 87086; 87186 ==